=== PATIENT | male | born 1970 | race Caucasian/White ===

== ENCOUNTER 2017-06-15 20:48 | Inpatient (IN) | payer MEDICAID ==
[~2017-06-15] VITALS: Ht 185.4 cm; Wt 143.0 kg
[2017-06-15] MEDS ORDERED: SOD CHLORIDE 0.9% 1,000 ML IV STA (21:00)
--- NOTE | 2017-06-15 21:05 | ERD ---
ER Documentation Chief Complaint Chief Complaint passed out in bathroom HPI This 46-year-old male had one episode of near syncope and one episode of syncope today at his home. Both episodes occurred right after standing up and he began to feel lightheaded and let himself down slowly. He denies any trauma. He currently has no pain. He did not have any chest pain shortness of breath fever or chills recently. He does state that he has felt very stressed out. He has generalized weakness. He has no suicidal or homicidal ideas. States that he feels a lot of anxiety. ROS All systems reviewed and are negative except as per history of present illness. Allergies Allergies: Coded Allergies: No Known Allergy (Unverified , 06/15/17) PMhx/Soc Medical and Surgical Hx: pt denies Medical Hx History of Surgery: Yes (abd surgery) Anesthesia Reaction: No Hx Neurological Disorder: No Hx Respiratory Disorders: No Hx Cardiac Disorders: No Hx Psychiatric Problems: No Hx Miscellaneous Medical Probl: No Hx Alcohol Use: No (prior) Hx Substance Use: No (prior, meth) Hx Tobacco Use: Yes Smoking Status: Current every day smoker Physical Exam Vitals Vital Signs Date Time Temp Pulse Resp B/P Pulse Ox O2 Delivery O2 Flow Rate FiO2 06/16/17 01:42 98.6 98 17 118/73 98 Nasal Cannula 6.0 06/15/17 20:53 99.6 113 20 139/71 94 Physical Exam Const: [] Mild distress, well-nourished, obese male Head: Atraumatic Eyes: Normal Conjunctiva EOMI, PERRLA ENT: Normal External Ears, Nose and Mouth. Neck: Full range of motion..~ No meningismus. Resp: Clear to auscultation bilaterally Cardio: Regular tachycardia, no murmurs Abd: Soft, non tender, non distended. Normal bowel sounds Skin: No petechiae or rashes Back: No midline or flank tenderness Ext: No cyanosis, or edema, distal pulses intact all 4 extreme Neur: Awake and alert oriented 3, cranial nerves II through XII intact, no cerebellar deficits, 5 out of 5 strength all extremities peer Psych: Appears mildly anxious but is very cooperative and pleasant. Result Diagram: 06/15/17211706/15/172117 Results 24 hrs Laboratory Tests Test 06/15/17 21:18 06/15/17 21:31 06/16/17 00:02 White Blood Count 13.310^3/ul Red Blood Count 5.2210^6/ul Hemoglobin 15.5g/dl Hematocrit 46.3% Mean Corpuscular Volume 88.7fl Mean Corpuscular Hemoglobin 29.7pg Mean Corpuscular Hemoglobin Concent 33.5g/dl Red Cell Distribution Width 13.0% Platelet Count 61677^3/UL Mean Platelet Volume 9.5fl Neutrophils % 87.8% Lymphocytes % 7.1% Monocytes % 3.9% Eosinophils % 0.1% Basophils % 0.4% Nucleated Red Blood Cells % 0.0/100WBC Neutrophils # 11.710^3/ul Lymphocytes # 1.010^3/ul Monocytes # 0.510^3/ul Eosinophils # 0.010^3/ul Basophils # 0.110^3/ul Nucleated Red Blood Cells # 0.010^3/ul Sodium Level 140mmol/L Potassium Level 4.5mmol/L Chloride Level 100mmol/L Carbon Dioxide Level 29mmol/L Anion Gap 16 Blood Urea Nitrogen 18mg/dl Creatinine 1.10mg/dl Glucose Level 193mg/dl Calcium Level 10.0mg/dl Troponin I 0.024ng/ml Urine Color MALIK Urine Clarity CLOUDY Urine pH 5.0 Urine Specific [place] 1.028 Urine Ketones TRACEmg/dL Urine Nitrite NEGATIVEmg/dL Urine Bilirubin NEGATIVEmg/dL Urine Urobilinogen 1+mg/dL Urine Leukocyte Esterase NEGATIVELeu/ul Urine Microscopic RBC 3/HPF Urine Microscopic WBC 4/HPF Urine Calcium Oxalate Crystals MANY/HPF Urine Hyaline Casts FEW/HPF Urine Mucus MODERATE/HPF Urine Hemoglobin NEGATIVEmg/dL Urine Glucose 1+mg/dL Urine Total Protein 2+mg/dl Lactic Acid Level 2.1mmol/L Current Medications Medications (Trade) Dose Ordered Sig/Rose Route PRN Reason Start Time Stop Time Status Last Admin Dose Admin Sodium Chloride (NS) 1,000 ml @ 1,000 mls/hr Q1H STAT IV 06/15/17 21:00 06/15/17 21:59 DC 06/15/17 21:39 Lorazepam (Ativan) 1 mg ONCE ONCE IV 06/15/17 21:30 06/15/17 21:31 DC 06/15/17 21:32 Procedures/MDM Multiple episodes of syncope today and 46-year-old male. Etiology is not certain. As first 2 episodes occurred after standing it seemed most likely a vasovagal event. This happened again in the emergency medicine bathroom patient was found unconscious on the ground. He did not remember anything except for making it to the bathroom until people were helping him up. He has no history of seizures. Head CT was performed and shows no acute intracranial process. Had already been hydrated with a liter of normal saline. Also been given Ativan 1 mg IV for anxiety. EKG with no signs of ischemia. Leukocytosis with no signs of urinary tract infection or pneumonia. Patient has no history of seizure disorder. As of mild dehydration with very mild elevation of lactic acid. He will be admitted for further monitoring and workup. Dr. Bailey is admitting. environmental monitoring technician interpretation: Initial sinus tachycardia followed eventually by normal sinus rhythm. EKG interpretation: Sinus tachycardia rate of 110, borderline axis, no ST or T- wave changes concerning for acute ischemia, normal intervals. Chest x-ray interpretation: See no acute process, no infiltrates, no pulmonary edema, no fractures, no pneumothorax. CT head interpretation: I see no acute process. I see no hemorrhage, no mass- effect or midline shift, no skull fracture. Departure Diagnosis: Primary Impression: Syncope Additional Impressions: Fall Dehydration Lactic acidosis Condition: Stable AWAIS ROGERS DO Jun 15, 2017 21:05
[2017-06-15] MEDS ORDERED: LORAZEPAM 2 MG INJ IV ONE (21:30)
--- NOTE | 2017-06-15 22:33 | RADRPT ---
PROCEDURE: XR Chest. CLINICAL INDICATION: Cough. TECHNIQUE: Portable AP semi erect views of the chest were obtained, 2 images sent to the PACS for review. COMPARISON: None. FINDINGS: The cardiomediastinal silhouette is within normal limits. The lungs are clear. There is no evidenc e for pleural effusion, pneumothorax or pulmonary vascular congestion. The osseous structures are i ntact with no evidence for acute abnormality. RPTAT:HJJR IMPRESSION: No evidence for acute intrathoracic pathology. Physician Luci Date Time Electronically viewed and signed by Physician Luci on 06/15/2017 22:33 /
[2017-06-16] VITALS (18 sets, daily range): BP systolic 96–137; BP diastolic 53–80; PULSE 74–83; RESP 14–18; TEMP 98.6; Ht 185.4 cm; Wt 143.0 kg
[2017-06-16] MEDS ORDERED: ETOMIDATE 20 MG INJ ONE
[2017-06-16] MEDS ORDERED: SUCCINYLCHOLINE CHLORIDE 100 MG/5 ML SYG IV ONE
--- NOTE | 2017-06-16 00:24 | RADRPT ---
PROCEDURE: CT Brain without contrast. CLINICAL INDICATION: New onset seizure TECHNIQUE: A CT of the brain was performed utilizing axial imaging from the skull base through the vertex without IV contrast. Multiplanar reformatted images were made. Images were reviewed on a [employer] workstation. The CTDIvol is 41.12 mGy and the DLP is 810.25 mGycm. One or more the following dose reduction techniques were utilized: Automated exposure control, adjus tment of the mA and / or kV according to patient's size, or use of iterative reconstruction techniqu e. COMPARISON: None FINDINGS: There is no intracranial hemorrhage, mass effect, or midline shift. No extra-axial fluid collection is seen. The ventricles and sulci are normal in size and configuration. The density of the brain is normal, and the lagos white matter differentiation appears well-preserved. The visualized paranasal sinuses and osseous structures are grossly unremarkable. IMPRESSION: 1. No evidence of acute intracranial pathology. 2. The brain is normal in appearance. RPTAT: HJES .Mason Waldrop MD, MD Date Time Electronically viewed and signed by .Mason Waldrop MD, on 06/16/2017 00:24 .S/
[2017-06-16] MEDS ORDERED: ONDANSETRON 4 MG INJ IV PRN ×2 (03:30→06:00)
[2017-06-16] MEDS ORDERED: ACETAMINOPHEN 325 MG TAB PO PRN (03:30)
[2017-06-16] MEDS ORDERED: PROPOFOL 100 ML ONE (05:48)
[2017-06-16] MEDS: PANTOPRAZOLE 40 MG INJ IV SCH (06:00)
[2017-06-16] MEDS ORDERED: ENOXAPARIN 100 MG/ML SYG SC SCH (06:00)
[2017-06-16] MEDS ORDERED: PROPOFOL 100 ML IV ONE (06:00)
[2017-06-16] MEDS ORDERED: LORAZEPAM 2 MG INJ IV PRN ×2 (06:00→11:30)
[2017-06-16] MEDS ORDERED: DEXTROSE 5%-0.45% NACL 1,000 ML IV SCH (06:00)
[2017-06-16] MEDS ORDERED: ENOXAPARIN 60 MG/0.6 ML SYG SC ONE (06:00)
[2017-06-16] MEDS ORDERED: DILTIAZEM-D5W 125MG/125ML DRIP 125 ML IV SCH (06:00)
[2017-06-16] MEDS ORDERED: ACETAMINOPHEN 650 MG SUPP PR PRN (06:00)
[2017-06-16] MEDS ORDERED: DILTIAZEM 25 MG INJ IV ONE (06:00)
[2017-06-16] MEDS ORDERED: ALBUTEROL HFA 8 GM INHALER INH PRN (06:00)
[2017-06-16] MEDS ORDERED: AMIODARONE 900 MG in DEXTROSE 5% 482 ML IV SCH (06:00)
[2017-06-16] MEDS ORDERED: IPRATROPIUM (HFA) 12.9 GM INHALER INH PRN (06:00)
[2017-06-16] MEDS ORDERED: LORAZEPAM 2 MG INJ IV ONE (06:00)
[2017-06-16] MEDS ORDERED: morphine 2 MG INJ IV PRN (06:00)
[2017-06-16] MEDS ORDERED: HALOPERIDOL 5 MG INJ ONE (06:04)
[2017-06-16] MEDS ORDERED: DIPHENHYDRAMINE 50 MG INJ ONE (06:04)
[2017-06-16] MEDS ORDERED: DIAZEPAM 5 MG/ML SYG IV ONE (07:00)
[2017-06-16] MEDS ORDERED: SOD CHLORIDE 0.9% 1,000 ML IV ONE (07:00)
[2017-06-16] MEDS ORDERED: LEVETIRACETAM 1000 MG (PMX) 100 ML IVPB ONE (07:00)
[2017-06-16] MEDS ORDERED: METOPROLOL 5 MG INJ IV ONE (07:00)
--- NOTE | 2017-06-16 07:26 | HP ---
Date/Time of Note Date/Time of Note DATE: 06/16/17 TIME: 07:14 Assessment/Plan VTE Prophylaxis VTE Prophylaxis Intervention: heparin Assessment/Plan Assessment/Plan 1. Acute encephalopathy, status post intubation: Suspect possible seizure versus CVA -Head CT was no acute findings -Obtain MRI of the brain -EEG -Neurology consult -Continue vent support -Pulmonary consult -IV Keppra with as needed Ativan for seizure -Versed for sedation 2. A-fib with RVR -Amiodarone drip, aspirin -Trend troponin, check TSH -2D echo -Cardiology consult 3. Syncope, which occurred at home -A-fib vs seizure vs other -See above for management plan 4. Leukocytosis, likely reactive -Check a.m. lab -Infectious workup as needed 5. Obesity, with a BMI of almost 42 -Weight reduction will be advised once patient is extubated and able communicate HPI/ROS Admit Date/Time Admit Date/Time Hx of Present Illness This is a 46-year-old obese male with history of meth use in the past who presented to the ER for syncope. Patient initially complained of dizziness/ lightheadedness while he was at home. He then had a loss of consciousness. Unknown for how long he was down. He then called 911 and in route to the ER he was alert and oriented even though reportedly, EMS felt he initially appeared to be in the post ictal state. When I arrived to the ER, had a temp of 99.6 and heart rate was 113. During his ER stay, patient was noted to be in rapid A. fib with a rate of around 170. He was also noted to show a change in mentation and was also aggressive requiring restraining and eventual intubation. He was given IV diltiazem and IV metoprolol with improvement in his heart rate. Currently he is awaiting admission to ICU. U tox not done yet but his urinalysis shows many calcium oxalate crystals. WBC was 13,000 and initial lactic acid 2.1. Head CT and a chest x-ray was no acute findings. PMH/Family/Social Social History Smoking Status: Current every day smoker Exam/Review of Systems Vital Signs Vitals Vital Signs Date Time Temp Pulse Resp B/P Pulse Ox O2 Delivery O2 Flow Rate FiO2 06/16/17 04:09 98.7 99 16 111/79 98 Nasal Cannula 6.0 Exam Constitutional: other (Intubated, looks comfortable on event) Head: atraumatic, normocephalic Eyes: PERRL Respiratory: clear to auscultation, normal air movement Cardiovascular: irregular rhythm Gastrointestinal: soft Extremities: normal pulses Labs Result Diagram: 06/15/17211706/15/172117 Medications Medications Current Medications Diltiazem HCl 125 ml @ 5 mls/hr TITRATE IV ; Start 06/16/17 at 06:00 Dextrose/Sodium Chloride (D5-1/2ns) 1,000 ml @ 100 mls/hr Q10H IV ; Start at 06:00 Ondansetron HCl (Zofran Inj) 4 mg Q6H PRN IV NAUSEA AND/OR VOMITING; Start at 06:00 Acetaminophen (Tylenol Supp) 650 mg Q4H PRN NM PAIN LEVEL 1-3 OR FEVER; Start 06/16/17 at 06:00 Morphine Sulfate (morphine) 2 mg Q4H PRN IV PAIN LEVEL 7-10; Start 06/16/17 at 06:00 Lorazepam (Ativan) 1 mg Q2H PRN IV ANXIETY; Start 06/16/17 at 06:00 Pantoprazole (Protonix Iv) 40 mg DAILY@06 IV ; Start 06/16/17 at 06:00 Enoxaparin Sodium (Lovenox) 100 mg Q24H SC ; Start 06/16/17 at 06:00 Aspirin 81 mg 81 mg DAILY PO ; Start 06/16/17 at 09:00 Amiodarone HCl/ Dextrose (Cordarone Iv/ D5W) 500 ml @ 0 mls/hr Q0M IV ; Start 06/16/17 at 06:00 Metoprolol Tartrate 12.5 mg 12.5 mg Q12 NGT ; Start 06/16/17 at 09:00 Sodium Chloride (NS) 1,000 ml @ 1,000 mls/hr Q1H ONCE IV ; Start 06/16/17 at 07:00; Stop 06/16/17 at 07:59 KEVIN CASTANO MD Jun 16, 2017 07:25
[2017-06-16] MEDS: PROPOFOL 100 ML IV SCH ×5 (08:15→21:32)
[2017-06-16] MEDS: ASPIRIN (EC) 81 MG TAB PO SCH (09:00)
[2017-06-16] MEDS ORDERED: METOPROLOL 25 MG TAB NGT SCH (09:00)
[2017-06-16] MEDS ORDERED: HEPARIN 25000 UNITS/250 ML 250 ML IV SCH (09:30)
[2017-06-16] MEDS ORDERED: HEPARIN 1000 UNITS/ML 10 ML INJ IV ONE (09:30)
[2017-06-16] MEDS ORDERED: HEPARIN 1000 UNITS/ML 10 ML INJ IV PRN (09:30)
[2017-06-16] MEDS ORDERED: DEXTROSE 50% 50 ML SYRINGE IV PRN ×2 (10:00)
[2017-06-16] MEDS ORDERED: GLUCOSE GEL 15 GRAM TUBE BUCCAL PRN (10:00)
[2017-06-16] MEDS ORDERED: GLUCAGON 1 MG INJ IM PRN (10:00)
[2017-06-16] MEDS ORDERED: GLUCOSE GEL 15 GRAM TUBE PO PRN ×2 (10:00)
--- NOTE | 2017-06-16 11:24 | PN ---
Date/Time of Note Date/Time of Note DATE: 06/16/17 TIME: 11:23 Assessment/Plan VTE Prophylaxis VTE Prophylaxis Intervention: heparin Assessment/Plan Chief Complaint/Hosp Course Patient is a 46-year-old obese male with a past medical history of meth use who presents to the ED for syncope, patient developed altered mental status while in the ED and had to be intubated. Questionable postictal state during pickup by paramedics Assessment and plan Acute encephalopathy, drug-induced, questionable spice, seizure, questionable CVA Atrial fibrillation with RVR, unknown if first event Syncope, questionable, secondary to A. fib versus seizure versus drug-induced Leukocytosis Obesity History of drug abuse Acute kidney injury, Elevated lactic acid Calcium oxalate and urine -Unknown cause of patient's encephalopathy, neurology has been consulted, EEG, MRI ordered, patient started on Keppra IV and intubated for airway protection -Patient's acute kidney injury may be secondary to volume depletion, patient was not producing very much urine upon initial evaluation, however patient's urine is increasing now, CT abdomen and pelvis to rule out obstructive nephrolithiasis given calcium oxalate crystals in urine, follow-up, increase volume resuscitation with IV fluids -A. fib with RVR, now sinus rhythm, will continue heparin drip for now given patient's unknown status of atrial fibrillation, cardiology has been consulted, recommendations appreciated -Pulmonology has been consulted for airway management, extubate when able -Follow-up in the a.m. Problems: Subjective 24 Hr Interval Summary Free Text/Dictation patient developed agitation and had to be intubated, still agitated on the vent and sedated Exam/Review of Systems Vital Signs Vitals Vital Signs Date Time Temp Pulse Resp B/P Pulse Ox O2 Delivery O2 Flow Rate FiO2 06/16/17 11:04 79 18 121/72 Mechanical Ventilator 06/16/17 10:08 98.0 98 06/16/17 05:45 100 06/16/17 04:09 6.0 Exam Physical exam General: Patient is laying in bed, intubated, sedated Mentation: Patient is sedated, but agitated Head: Normocephalic atraumatic Eyes: EOMI, pupils reactive to light, sluggish Neck: Supple, nontender, midline Respiratory: coarse to auscultation bilaterally Cardiovascular: tachycardic, no obvious murmurs Gastrointestinal: non-tender to palpation, bowel sounds heard. Neurological: Moves all extremities spontaneously, but sedated Skin: No new skin lesions Results Result Diagram: 06/16/17 0737 06/16/17 0737 Results 24 hrs Laboratory Tests Test 06/15/17 21:18 06/15/17 21:31 06/16/17 00:02 06/16/17 07:00 White Blood Count 13.3 H Red Blood Count 5.22 Hemoglobin 15.5 Hematocrit 46.3 Mean Corpuscular Volume 88.7 Mean Corpuscular Hemoglobin 29.7 Mean Corpuscular Hemoglobin Concent 33.5 Red Cell Distribution Width 13.0 Platelet Count 301 Mean Platelet Volume 9.5 Neutrophils % 87.8 H Lymphocytes % 7.1 L Monocytes % 3.9 Eosinophils % 0.1 Basophils % 0.4 Nucleated Red Blood Cells % 0.0 Neutrophils # 11.7 H Lymphocytes # 1.0 Monocytes # 0.5 Eosinophils # 0.0 Basophils # 0.1 Nucleated Red Blood Cells # 0.0 Sodium Level 140 Potassium Level 4.5 Chloride Level 100 Carbon Dioxide Level 29 Anion Gap 16 Blood Urea Nitrogen 18 Creatinine 1.10 Glucose Level 193 Calcium Level 10.0 Troponin I 0.024 Thyroid Stimulating Hormone (TSH) 1.040 Urine Color MALIK Urine Clarity CLOUDY A Urine pH 5.0 Urine Specific [place] 1.028 Urine Ketones TRACE A Urine Nitrite NEGATIVE Urine Bilirubin NEGATIVE Urine Urobilinogen 1+ H Urine Leukocyte Esterase NEGATIVE Urine Microscopic RBC 3 Urine Microscopic WBC 4 Urine Calcium Oxalate Crystals MANY A Urine Hyaline Casts FEW A Urine Mucus MODERATE Urine Hemoglobin NEGATIVE Urine Glucose 1+ H Urine Total Protein 2+ H Lactic Acid Level 2.1 H Urine Opiates Screen Negative Urine Barbiturates Negative Urine Amphetamines Screen Negative Urine Benzodiazepines Screen Negative Urine Cocaine Screen Negative Urine Cannabinoids Negative Test 06/16/17 07:37 White Blood Count 12.9 H Red Blood Count 4.36 L Hemoglobin 13.2 L Hematocrit 39.5 L Mean Corpuscular Volume 90.6 Mean Corpuscular Hemoglobin 30.3 Mean Corpuscular Hemoglobin Concent 33.4 Red Cell Distribution Width 13.2 Platelet Count 258 Mean Platelet Volume 9.4 Neutrophils % 82.0 H Lymphocytes % 9.0 L Monocytes % 7.7 Eosinophils % 0.2 Basophils % 0.4 Nucleated Red Blood Cells % 0.0 Neutrophils # 10.6 H Lymphocytes # 1.2 Monocytes # 1.0 H Eosinophils # 0.0 Basophils # 0.1 Nucleated Red Blood Cells # 0.0 Prothrombin Time 13.5 Prothrombin Time Ratio 1.1 INR International Normalized Ratio 1.03 Activated Partial Thromboplast Time 28.0 Sodium Level 143 Potassium Level 4.5 Chloride Level 109 Carbon Dioxide Level 27 Anion Gap 12 Blood Urea Nitrogen 19 Creatinine 1.29 H Glucose Level 118 # Hemoglobin A1c 6.9 H Calcium Level 8.4 Magnesium Level 1.9 Total Bilirubin 0.2 Direct Bilirubin 0.00 Indirect Bilirubin 0.2 Aspartate Amino Transf (AST/SGOT) 30 Alanine Aminotransferase (ALT/SGPT) 41 Alkaline Phosphatase 53 Troponin I 0.084 Total Protein 5.5 L Albumin 2.8 L Globulin 2.70 Albumin/Globulin Ratio 1.03 Triglycerides Level 129 Cholesterol Level 108 LDL Cholesterol, Calculated 62 HDL Cholesterol 20 L Cholesterol/HDL Ratio 5.4 Thyroid Stimulating Hormone (TSH) 1.390 Medications Medications Current Medications Diltiazem HCl 125 ml @ 5 mls/hr TITRATE IV ; Start 06/16/17 at 06:00 Dextrose/Sodium Chloride (D5-1/2ns) 1,000 ml @ 100 mls/hr Q10H IV Last administered on 06/16/17 06:00; Admin Dose 100 MLS/HR; Start 06/16/17 at 06: 00 Ondansetron HCl (Zofran Inj) 4 mg Q6H PRN IV NAUSEA AND/OR VOMITING; Start at 06:00 Acetaminophen (Tylenol Supp) 650 mg Q4H PRN NE PAIN LEVEL 1-3 OR FEVER; Start 06/16/17 at 06:00 Morphine Sulfate (morphine) 2 mg Q4H PRN IV PAIN LEVEL 7-10; Start 06/16/17 at 06:00 Lorazepam (Ativan) 1 mg Q2H PRN IV ANXIETY; Start 06/16/17 at 06:00 Pantoprazole (Protonix Iv) 40 mg DAILY@06 IV Last administered on 06/16/17 06 :00; Admin Dose 40 MG; Start 06/16/17 at 06:00 Aspirin 81 mg 81 mg DAILY PO ; Start 06/16/17 at 09:00 Amiodarone HCl/ Dextrose (Cordarone Iv/ D5W) 500 ml @ 0 mls/hr Q0M IV ; Start 06/16/17 at 06:00 Metoprolol Tartrate (Lopressor) 12.5 mg Q12 NGT ; Start 06/16/17 at 09:00 Diagnostic Test (Pha) (Accu-Chek) 1 ea 02 XX ; Start 06/17/17 at 02:00 Insulin Aspart (Novolog Insulin Pen) NOVOLOG *MODERATE* ALGORITHM Q6 SC ; Start 06/16/17 at 12:00 Miscellaneous Information 1 ea NOTE XX ; Start 06/16/17 at 10:00 Glucose (Glutose) 15 gm Q15M PRN PO DECREASED GLUCOSE; Start 06/16/17 at 10:00 Glucose (Glutose) 22.5 gm Q15M PRN PO DECREASED GLUCOSE; Start 06/16/17 at 10: 00 Dextrose (D50w Syringe) 25 ml Q15M PRN IV DECREASED GLUCOSE; Start 06/16/17 at 10:00 Dextrose (D50w Syringe) 50 ml Q15M PRN IV DECREASED GLUCOSE; Start 06/16/17 at 10:00 Glucagon (Glucagen) 1 mg Q15M PRN IM DECREASED GLUCOSE; Start 06/16/17 at 10: 00 Glucose (Glutose) 15 gm Q15M PRN BUCCAL DECREASED GLUCOSE; Start 06/16/17 at 10:00 LIVE SHEN Jun 16, 2017 11:24
--- NOTE | 2017-06-16 11:39 | RADRPT ---
PROCEDURE: US carotid arteries. CLINICAL INDICATION: Dizziness. Syncope. TECHNIQUE: Multiple sonographic images of the carotid arteries and vertebral arteries were obtaine d utilizing lagos scale, duplex, and color-flow imaging. The images were reviewed on a PACS workstati on. COMPARISON: No prior studies are available for comparison. FINDINGS: Evaluation of the right carotid bifurcation region reveals no atherosclerotic disease. There is antegrade flow within the right vertebral artery. The left side of neck could not be evaluated due to overlying dressing. RIGHT CAROTID MEASUREMENTS: Common Carotid [id number] (cm/sec) Internal Carotid Artery 56 (cm/sec) External Carotid Artery , 108 (cm/sec) Vertebral Artery 51 (cm/sec) Internal Carotid/Common Carotid0.8 LEFT CAROTID MEASUREMENTS: Unable to assess due to overlying dressing. Validated velocity measurements with angiographic measurements. Velocity criteria are extrapolated f rom diameter data as defined by the Society of Radiologists in Ultrasound Consensus Conference. Radi ology 2003; 229;340-346. This study does indirectly reference the measurement of the distal ICA elizabeth meter as the denominator for stenosis measurement. IMPRESSION: 1. Normal right carotid arteries. 2. Normal antegrade flow in the right vertebral artery. 3. The left side of neck could not be evaluated due to overlying dressing. RPTAT: QQ SRU Consensus Conference Criteria for the Diagnosis of Carotid Artery Stenosis* Degree of Stenosis, % ICA PSV, cm/sec Plaque Estimate, % ICA/CCA PSV Ratio Normal <125 None <2.0 <50 <125 <50 <2.0 50 69 125-230 >50 2.0-4.0 >70 but less than near occlusion >230 >50 <4.0 Near occlusion High, low, or undetectable Visible Variable Total occlusion Undetectable Visible, no detectable lumen Not applicable *Cartoid artery stenosis: lagos-scale and Doppler US diagnosis. Society of Radiologists in Ultrasound Consensus Conference. Radiology 2003; 229: 340-346 .Jimi Cabrera MD, Date Time Electronically viewed and signed by .Jimi Cabrera MD, on 06/16/2017 11:39 .R/
[2017-06-16] MEDS: SOD CHLORIDE 0.9% 1,000 ML IV SCH ×2 (11:52→17:42)
[2017-06-16] MEDS: INSULIN ASPART [NOVOLOG] 3 ML PEN SC SCH ×2 (12:00→17:42)
--- NOTE | 2017-06-16 15:39 | CONS ---
DATE OF ADMISSION: 06/16/2017 DATE OF CONSULTATION: TYPE OF CONSULTATION: Pulmonary. REASON FOR CONSULTATION: Respiratory failure, mechanical ventilation. HISTORY OF PRESENT ILLNESS: This is a 46-year-old gentleman with multiple medical problems, came in , apparently having taken methamphetamines, possibly in the emergency room bathroom. Became minimal ly unresponsive, required emergent intubation and mechanical ventilation. Also noted to be in atria l fibrillation with rapid ventricular rate requiring IV metoprolol and then Cardizem drip. Initial lactic acidosis and leukocytosis were noted. CT of the brain and chest x-ray was essentially unrema rkable. PAST MEDICAL HISTORY: As above. MEDICATIONS: Per chart. ALLERGIES: NONE. SOCIAL HISTORY: Nonsmoker. Alcohol, tobacco history unknown. PHYSICAL EXAMINATION GENERAL: An obese gentleman, orally intubated on mechanical ventilation, appears comfortable at res t. VITAL SIGNS: Currently afebrile, pulse is 80, blood pressure 121/80, O2 saturation 96% on FIO2 of 1 00%. NECK: Supple. No JVD or lymphadenopathy. CARDIAC: S1, S2, no added sounds or murmurs. CHEST: Diminished air entry bilaterally. ABDOMEN: Soft, nontender. No guarding or rebound. EXTREMITIES: No cyanosis, clubbing. NEUROLOGIC: Unable to assess. LABORATORIES: White count 12.9, hemoglobin 13.2, platelets of 258. BUN 19, creatinine 1.29. INR w as 1.03. Initial U-tox is unremarkable. Urinalysis was negative. DIAGNOSTIC STUDIES: Chest x-ray showed no acute intrathoracic abnormality. CT of the brain was wit hin normal limits. IMPRESSION AND PLAN: 1. Concern for substance abuse. 2. Atrial fibrillation with rapid ventricular rate. 3. Hypoxemic respiratory failure. 4. Significant encephalopathy, toxic metabolic. PLAN: 1. Continue mechanical ventilation. 2. Vent support. 3. Rate control and cardiac recommendations. 4. DVT and GI prophylaxis. Dictated By: BETH ALFARO/LIYAH Conf#: [id number] DID#: [id number]
--- NOTE | 2017-06-16 15:56 | CONS ---
Date/Time of Note Date/Time of Note DATE: 06/16/17 TIME: 15:50 Assessment/Plan Assessment/Plan Chief Complaint/Hosp Course Altered mental status and possible seizures Problems: Additional Assessment/Plan Patient is a 46-year-old male with history of methamphetamine use in the past was brought into emergency room for possible syncope. He initially complained of dizziness and lightheadedness while he was home. Subsequently he lost consciousness. The duration of his loss of consciousness is not known. He himself called paramedics and was awake and alert en route to emergency room. As per paramedics he had appeared to be postictal. In the emergency room his initial evaluation shows him to be in rapid atrial fibrillation with a rate of around 170 and he was confused. He became agitated requiring restraining and eventually intubated. A CT scan of the brain was unremarkable. He is currently in ICU. Examination was quite limited. He is intubated, ventilated and sedated. He may have had a seizure but would like to rule out other causes. Plan 1 MRI of the brain 2 EEG 3 avoid sedation if possible 4 seizure precautions 5 neuro checks per ICU protocol 6 will follow Consultation Date/Type/Reason Admit Date/Time Date of Consultation: Jun 16, 2017 Type of Consultation: Neurology Reason for Consultation Altered mental status possibly seizure Hx of Present Illness Patient is a 46-year-old male with history of methamphetamine use in the past was brought into emergency room for possible syncope. He initially complained of dizziness and lightheadedness while he was home. Subsequently he lost consciousness. The duration of his loss of consciousness is not known. He himself called paramedics and was awake and alert en route to emergency room. As per paramedics he had appeared to be postictal. In the emergency room his initial evaluation shows him to be in rapid atrial fibrillation with a rate of around 170 and he was confused. He became agitated requiring restraining and eventually intubated. A CT scan of the brain was unremarkable. He is currently in ICU. Social History Smoking Status: Current every day smoker Exam/Review of Systems Vital Signs Vitals Vital Signs Date Time Temp Pulse Resp B/P Pulse Ox O2 Delivery O2 Flow Rate FiO2 06/16/17 15:05 85 18 100 100 06/16/17 14:35 141/78 Mechanical Ventilator 06/16/17 13:00 98.6 06/16/17 04:09 6.0 Exam Constitutional: other (Intubated, mechanically ventilated, sedated) Head: normocephalic Eyes: nl conjunctiva ENMT: nl external ears & nose Neck: non-tender, supple Cardiovascular: nl pulses, regular rate and rhythm Gastrointestinal: nl liver, spleen, soft Neurological: other (Intubated, mechanically ventilated, sedated, positive corneals and gag reflexes, no withdrawal to noxious stimulus, limited exam) Results Result Diagram: 06/16/17 0737 06/16/17 0737 Results 24 hrs Laboratory Tests Test 06/15/17 21:18 06/15/17 21:31 06/16/17 00:02 06/16/17 07:00 White Blood Count 13.3 H Red Blood Count 5.22 Hemoglobin 15.5 Hematocrit 46.3 Mean Corpuscular Volume 88.7 Mean Corpuscular Hemoglobin 29.7 Mean Corpuscular Hemoglobin Concent 33.5 Red Cell Distribution Width 13.0 Platelet Count 301 Mean Platelet Volume 9.5 Neutrophils % 87.8 H Lymphocytes % 7.1 L Monocytes % 3.9 Eosinophils % 0.1 Basophils % 0.4 Nucleated Red Blood Cells % 0.0 Neutrophils # 11.7 H Lymphocytes # 1.0 Monocytes # 0.5 Eosinophils # 0.0 Basophils # 0.1 Nucleated Red Blood Cells # 0.0 Sodium Level 140 Potassium Level 4.5 Chloride Level 100 Carbon Dioxide Level 29 Anion Gap 16 Blood Urea Nitrogen 18 Creatinine 1.10 Glucose Level 193 Calcium Level 10.0 Troponin I 0.024 Thyroid Stimulating Hormone (TSH) 1.040 Urine Color MALIK Urine Clarity CLOUDY A Urine pH 5.0 Urine Specific [place] 1.028 Urine Ketones TRACE A Urine Nitrite NEGATIVE Urine Bilirubin NEGATIVE Urine Urobilinogen 1+ H Urine Leukocyte Esterase NEGATIVE Urine Microscopic RBC 3 Urine Microscopic WBC 4 Urine Calcium Oxalate Crystals MANY A Urine Hyaline Casts FEW A Urine Mucus MODERATE Urine Hemoglobin NEGATIVE Urine Glucose 1+ H Urine Total Protein 2+ H Lactic Acid Level 2.1 H Urine Opiates Screen Negative Urine Barbiturates Negative Urine Amphetamines Screen Negative Urine Benzodiazepines Screen Negative Urine Cocaine Screen Negative Urine Cannabinoids Negative Test 06/16/17 07:37 06/16/17 11:57 06/16/17 12:27 06/16/17 14:17 White Blood Count 12.9 H Red Blood Count 4.36 L Hemoglobin 13.2 L Hematocrit 39.5 L Mean Corpuscular Volume 90.6 Mean Corpuscular Hemoglobin 30.3 Mean Corpuscular Hemoglobin Concent 33.4 Red Cell Distribution Width 13.2 Platelet Count 258 Mean Platelet Volume 9.4 Neutrophils % 82.0 H Lymphocytes % 9.0 L Monocytes % 7.7 Eosinophils % 0.2 Basophils % 0.4 Nucleated Red Blood Cells % 0.0 Neutrophils # 10.6 H Lymphocytes # 1.2 Monocytes # 1.0 H Eosinophils # 0.0 Basophils # 0.1 Nucleated Red Blood Cells # 0.0 Prothrombin Time 13.5 Prothrombin Time Ratio 1.1 INR International Normalized Ratio 1.03 Activated Partial Thromboplast Time 28.0 Sodium Level 143 Potassium Level 4.5 Chloride Level 109 Carbon Dioxide Level 27 Anion Gap 12 Blood Urea Nitrogen 19 Creatinine 1.29 H Glucose Level 118 # Hemoglobin A1c 6.9 H Calcium Level 8.4 Magnesium Level 1.9 Total Bilirubin 0.2 Direct Bilirubin 0.00 Indirect Bilirubin 0.2 Aspartate Amino Transf (AST/SGOT) 30 Alanine Aminotransferase (ALT/SGPT) 41 Alkaline Phosphatase 53 Troponin I 0.084 0.064 Total Protein 5.5 L Albumin 2.8 L Globulin 2.70 Albumin/Globulin Ratio 1.03 Triglycerides Level 129 Cholesterol Level 108 LDL Cholesterol, Calculated 62 HDL Cholesterol 20 L Cholesterol/HDL Ratio 5.4 Thyroid Stimulating Hormone (TSH) 1.390 Lactic Acid Level 1.4 Ammonia < 9 L Creatine Kinase 1295 H Creatine Kinase Index 0.7 Creatinine Kinase MB (Mass) 9.00 H Bedside Glucose 112 Blood Gas Specimen Source Blood arterial Arterial Blood Date Drawn 06/16/2017 2:20:59 PM Arterial Blood pH (Temp corrected) 7.361 Arterial Blood pCO2 (Temp correct) 45.6 H Arterial Blood pO2 (Temp corrected) 178.9 H Arterial Blood HCO3 25.2 Arterial Blood Base Excess -0.6 Arterial Blood Oxygen Saturation 99.1 H Andrew Test N/A Arterial Blood Gas Puncture Site Right Brachial Arterial Blood Carboxyhemoglobin 0.1 Arterial Blood Methemoglobin 0.3 Blood Gas A-a O2 Differential 488.5 H Oxyhemoglobin Percent 98.7 Total Hemoglobin 15.5 Blood Gas Temperature 37.0 Blood Gas Respiration Rate 12.0 Blood Gas Actual Respiration Rate 19 Blood Gas Modality VENT - AC FiO2 100.0 Blood Gas Tidal Volume 600.0 Blood Gas Low PEEP Setting 0 Blood Gas Notified Whom [place] Blood Gas Notified Time 06/16/2017 2:25:04 PM Medications Medications Current Medications Diltiazem HCl (Cardizem-D5W 125 Mg/125 ml Drip) 125 ml @ 5 mls/hr TITRATE IV ; Start 06/16/17 at 06:00 Ondansetron HCl (Zofran Inj) 4 mg Q6H PRN IV NAUSEA AND/OR VOMITING; Start at 06:00 Acetaminophen (Tylenol Supp) 650 mg Q4H PRN [place] PAIN LEVEL 1-3 OR FEVER; Start 06/16/17 at 06:00 Morphine Sulfate (morphine) 2 mg Q4H PRN IV PAIN LEVEL 7-10; Start 06/16/17 at 06:00 Lorazepam (Ativan) 1 mg Q2H PRN IV ANXIETY; Start 06/16/17 at 06:00 Pantoprazole (Protonix Iv) 40 mg DAILY@06 IV Last administered on 06/16/17t 06 :00; Admin Dose 40 MG; Start 06/16/17 at 06:00 Aspirin 81 mg 81 mg DAILY PO ; Start 06/16/17 at 09:00 Amiodarone HCl/ Dextrose (Cordarone Iv/ D5W) 500 ml @ 0 mls/hr Q0M IV ; Start 06/16/17 at 06:00 Metoprolol Tartrate (Lopressor) 12.5 mg Q12 NGT ; Start 06/16/17 at 09:00 Diagnostic Test (Pha) (Accu-Chek) 1 ea 02 XX ; Start 06/17/17 at 02:00 Insulin Aspart (Novolog Insulin Pen) NOVOLOG *MODERATE* ALGORITHM Q6 SC ; Start 06/16/17 at 12:00 Miscellaneous Information 1 ea NOTE XX ; Start 06/16/17 at 10:00 Glucose (Glutose) 15 gm Q15M PRN PO DECREASED GLUCOSE; Start 06/16/17 at 10:00 Glucose (Glutose) 22.5 gm Q15M PRN PO DECREASED GLUCOSE; Start 06/16/17 at 10: 00 Dextrose (D50w Syringe) 25 ml Q15M PRN IV DECREASED GLUCOSE; Start 06/16/17 at 10:00 Dextrose (D50w Syringe) 50 ml Q15M PRN IV DECREASED GLUCOSE; Start 06/16/17 at 10:00 Glucagon (Glucagen) 1 mg Q15M PRN IM DECREASED GLUCOSE; Start 06/16/17 at 10: 00 Glucose 15 gm 15 gm Q15M PRN BUCCAL DECREASED GLUCOSE; Start 06/16/17 at 10:00 Sodium Chloride 1,000 ml @ 150 mls/hr Q6H40M IV Last administered on t 11:52; Admin Dose 150 MLS/HR; Start 06/16/17 at 11:30 Levetiracetam (Keppra 1,000mg/ 100ml (Pmx)) 100 ml @ 400 mls/hr Q12 IVPB ; Start 06/16/17 at 21:00 Lorazepam (Ativan) 2 mg Q10MIN PRN IV seizure; Start 06/16/17 at 11:30 SAIGE LARIOS MD Jun 16, 2017 15:56
--- NOTE | 2017-06-16 17:21 | RADRPT ---
PROCEDURE: XR Chest. CLINICAL INDICATION: Check endotracheal tube position. TECHNIQUE: Single frontal view. COMPARISON: 06/15/2017. FINDINGS: The endotracheal tube is in satisfactory position with the tip 2.5 cm above the sharyn. The nasogast annie tube tip is in the stomach. There is mild atelectasis at the lung bases and there is bilateral i nterstitial disease consistent with pulmonary edema. The lungs are otherwise clear. The heart size is normal. There is no pleural effusion. There is no pleural effusion. There is mild left basilar atelectasis. IMPRESSION: 1. Endotracheal tube in satisfactory position. 2. Nasogastric tube tip in the stomach. 3. Mild atelectasis at the lung bases. 4. Bilateral interstitial pulmonary edema. 5. Mild left basilar atelectasis. 6. Otherwise unremarkable chest radiograph. RPTAT: QQ .Jimi Cabrera MD, Date Time Electronically viewed and signed by .Jimi Cabrera MD, on 06/16/2017 17:21 .R/
--- NOTE | 2017-06-16 17:30 | CONS ---
Date/Time of Note Date/Time of Note DATE: 06/16/17 TIME: 17:20 Assessment/Plan Assessment/Plan Chief Complaint/Hosp Course Assessment: Syncope vs seizure Paroxysmal atrial fibrillation with rapid ventricular response - now back in sinus rhythm Acute metabolic encephalopathy Acute hypoxic respiratory failure - intubated and on mechanical ventilation Leukocytosis and lactic acidosis - rule out infection Calcium oxalate crystals in urine - ? ethylene glycol or other poisoning Incomplete data Recommendations -discontinue heparin drip -metoprolol 25mg BID -obtain transthoracic echocardiogram Problems: Consultation Date/Type/Reason Admit Date/Time Type of Consultation: Cardiology Reason for Consultation atrial fibrillation with rapid ventricular response Hx of Present Illness The patient is a 46 year-old male who presented to the emergency department complaining of lightheadedness and an episode of loss of consciousness while at home. While in the emergency department, he became more confused and agitated, requiring restraints and subsequent intubation. He also went into atrial fibrillation with rapid ventricular response. He received intravenous diltiazem with improvement in his heart rates and subsequent reversion to sinus rhythm. He has a reported history of methamphetamine abuse. Current urine toxicology is negative. Unable to obtain review of systems, patient is intubated. Past Medical History Unable to obtain Past Surgical History Unable to obtain Family History Significant Family History: other (unable to obtain) Social History Unable to obtain Exam/Review of Systems Vital Signs Vitals Vital Signs Date Time Temp Pulse Resp B/P Pulse Ox O2 Delivery O2 Flow Rate FiO2 06/16/17 16:41 100 06/16/17 16:15 78 14 111/53 98 06/16/17 15:15 97.4 Mechanical Ventilator 06/16/17 04:09 6.0 Exam Constitutional: obese, No alert, No distress Psych: No nl mood/affect, No no complaints Head: atraumatic, normocephalic Eyes: nl conjunctiva, nl lids ENMT: intubated Neck: supple, No jvd Respiratory: clear to auscultation, No wheezing Cardiovascular: regular rate and rhythm, No murmurs/extra sounds Gastrointestinal: non-tender, soft Musculoskeletal: nl extremities to inspection Extremities: No clubbing, No cyanosis, No edema Neurological: No nl mental status, No nl speech Skin: nl turgor Results Result Diagram: 06/16/17 0737 06/16/17 0737 Results 24 hrs Laboratory Tests Test 06/15/17 21:18 06/15/17 21:31 06/16/17 00:02 06/16/17 07:00 White Blood Count 13.3 H Red Blood Count 5.22 Hemoglobin 15.5 Hematocrit 46.3 Mean Corpuscular Volume 88.7 Mean Corpuscular Hemoglobin 29.7 Mean Corpuscular Hemoglobin Concent 33.5 Red Cell Distribution Width 13.0 Platelet Count 301 Mean Platelet Volume 9.5 Neutrophils % 87.8 H Lymphocytes % 7.1 L Monocytes % 3.9 Eosinophils % 0.1 Basophils % 0.4 Nucleated Red Blood Cells % 0.0 Neutrophils # 11.7 H Lymphocytes # 1.0 Monocytes # 0.5 Eosinophils # 0.0 Basophils # 0.1 Nucleated Red Blood Cells # 0.0 Sodium Level 140 Potassium Level 4.5 Chloride Level 100 Carbon Dioxide Level 29 Anion Gap 16 Blood Urea Nitrogen 18 Creatinine 1.10 Glucose Level 193 Calcium Level 10.0 Troponin I 0.024 Thyroid Stimulating Hormone (TSH) 1.040 Urine Color MALIK Urine Clarity CLOUDY A Urine pH 5.0 Urine Specific [place] 1.028 Urine Ketones TRACE A Urine Nitrite NEGATIVE Urine Bilirubin NEGATIVE Urine Urobilinogen 1+ H Urine Leukocyte Esterase NEGATIVE Urine Microscopic RBC 3 Urine Microscopic WBC 4 Urine Calcium Oxalate Crystals MANY A Urine Hyaline Casts FEW A Urine Mucus MODERATE Urine Hemoglobin NEGATIVE Urine Glucose 1+ H Urine Total Protein 2+ H Lactic Acid Level 2.1 H Urine Opiates Screen Negative Urine Barbiturates Negative Urine Amphetamines Screen Negative Urine Benzodiazepines Screen Negative Urine Cocaine Screen Negative Urine Cannabinoids Negative Test 06/16/17 07:37 06/16/17 11:57 06/16/17 12:27 06/16/17 14:17 White Blood Count 12.9 H Red Blood Count 4.36 L Hemoglobin 13.2 L Hematocrit 39.5 L Mean Corpuscular Volume 90.6 Mean Corpuscular Hemoglobin 30.3 Mean Corpuscular Hemoglobin Concent 33.4 Red Cell Distribution Width 13.2 Platelet Count 258 Mean Platelet Volume 9.4 Neutrophils % 82.0 H Lymphocytes % 9.0 L Monocytes % 7.7 Eosinophils % 0.2 Basophils % 0.4 Nucleated Red Blood Cells % 0.0 Neutrophils # 10.6 H Lymphocytes # 1.2 Monocytes # 1.0 H Eosinophils # 0.0 Basophils # 0.1 Nucleated Red Blood Cells # 0.0 Prothrombin Time 13.5 Prothrombin Time Ratio 1.1 INR International Normalized Ratio 1.03 Activated Partial Thromboplast Time 28.0 Sodium Level 143 Potassium Level 4.5 Chloride Level 109 Carbon Dioxide Level 27 Anion Gap 12 Blood Urea Nitrogen 19 Creatinine 1.29 H Glucose Level 118 # Hemoglobin A1c 6.9 H Calcium Level 8.4 Magnesium Level 1.9 Total Bilirubin 0.2 Direct Bilirubin 0.00 Indirect Bilirubin 0.2 Aspartate Amino Transf (AST/SGOT) 30 Alanine Aminotransferase (ALT/SGPT) 41 Alkaline Phosphatase 53 Troponin I 0.084 0.064 Total Protein 5.5 L Albumin 2.8 L Globulin 2.70 Albumin/Globulin Ratio 1.03 Triglycerides Level 129 Cholesterol Level 108 LDL Cholesterol, Calculated 62 HDL Cholesterol 20 L Cholesterol/HDL Ratio 5.4 Thyroid Stimulating Hormone (TSH) 1.390 Lactic Acid Level 1.4 Ammonia < 9 L Creatine Kinase 1295 H Creatine Kinase Index 0.7 Creatinine Kinase MB (Mass) 9.00 H Bedside Glucose 112 Blood Gas Specimen Source Blood arterial Arterial Blood Date Drawn 06/16/2017 2:20:59 PM Arterial Blood pH (Temp corrected) 7.361 Arterial Blood pCO2 (Temp correct) 45.6 H Arterial Blood pO2 (Temp corrected) 178.9 H Arterial Blood HCO3 25.2 Arterial Blood Base Excess -0.6 Arterial Blood Oxygen Saturation 99.1 H Andrew Test N/A Arterial Blood Gas Puncture Site Right Brachial Arterial Blood Carboxyhemoglobin 0.1 Arterial Blood Methemoglobin 0.3 Blood Gas A-a O2 Differential 488.5 H Oxyhemoglobin Percent 98.7 Total Hemoglobin 15.5 Blood Gas Temperature 37.0 Blood Gas Respiration Rate 12.0 Blood Gas Actual Respiration Rate 19 Blood Gas Modality VENT - AC FiO2 100.0 Blood Gas Tidal Volume 600.0 Blood Gas Low PEEP Setting 0 Blood Gas Notified Whom [place] Blood Gas Notified Time 06/16/2017 2:25:04 PM Test 06/16/17 17:18 Bedside Glucose 87 Medications Medications Current Medications Diltiazem HCl (Cardizem-D5W 125 Mg/125 ml Drip) 125 ml @ 5 mls/hr TITRATE IV ; Start 06/16/17 at 06:00 Ondansetron HCl (Zofran Inj) 4 mg Q6H PRN IV NAUSEA AND/OR VOMITING; Start at 06:00 Acetaminophen (Tylenol Supp) 650 mg Q4H PRN [place] PAIN LEVEL 1-3 OR FEVER; Start 06/16/17 at 06:00 Morphine Sulfate (morphine) 2 mg Q4H PRN IV PAIN LEVEL 7-10; Start 06/16/17 at 06:00 Lorazepam (Ativan) 1 mg Q2H PRN IV ANXIETY; Start 06/16/17 at 06:00 Pantoprazole (Protonix Iv) 40 mg DAILY@06 IV Last administered on 06/16/17 06 :00; Admin Dose 40 MG; Start 06/16/17 at 06:00 Aspirin 81 mg 81 mg DAILY PO ; Start 06/16/17 at 09:00 Amiodarone HCl/ Dextrose (Cordarone Iv/ D5W) 500 ml @ 0 mls/hr Q0M IV ; Start 06/16/17 at 06:00 Metoprolol Tartrate (Lopressor) 12.5 mg Q12 NGT ; Start 06/16/17 at 09:00 Diagnostic Test (Pha) (Accu-Chek) 1 ea 02 XX ; Start 06/17/17 at 02:00 Insulin Aspart (Novolog Insulin Pen) NOVOLOG *MODERATE* ALGORITHM Q6 SC ; Start 06/16/17 at 12:00 Miscellaneous Information 1 ea NOTE XX ; Start 06/16/17 at 10:00 Glucose (Glutose) 15 gm Q15M PRN PO DECREASED GLUCOSE; Start 06/16/17 at 10:00 Glucose (Glutose) 22.5 gm Q15M PRN PO DECREASED GLUCOSE; Start 06/16/17 at 10: 00 Dextrose (D50w Syringe) 25 ml Q15M PRN IV DECREASED GLUCOSE; Start 06/16/17 at 10:00 Dextrose (D50w Syringe) 50 ml Q15M PRN IV DECREASED GLUCOSE; Start 06/16/17 at 10:00 Glucagon (Glucagen) 1 mg Q15M PRN IM DECREASED GLUCOSE; Start 06/16/17 at 10: 00 Glucose 15 gm 15 gm Q15M PRN BUCCAL DECREASED GLUCOSE; Start 06/16/17 at 10:00 Sodium Chloride 1,000 ml @ 150 mls/hr Q6H40M IV Last administered on 11:52; Admin Dose 150 MLS/HR; Start 06/16/17 at 11:30 Levetiracetam (Keppra 1,000mg/ 100ml (Pmx)) 100 ml @ 400 mls/hr Q12 IVPB ; Start 06/16/17 at 21:00 Lorazepam (Ativan) 2 mg Q10MIN PRN IV seizure; Start 06/16/17 at 11:30 ELLEN AGUILERA MD Jun 16, 2017 17:30
--- NOTE | 2017-06-16 18:46 | RADRPT ---
PROCEDURE: CT Abdomen and Pelvis without contrast CLINICAL INDICATION: Nephrolithiasis TECHNIQUE: Transaxial images were obtained through the abdomen and pelvis on a multi-slice scanner without the intravenous contrast administration. No oral contrast had previously been given. Sagit pablo and coronal re-formations were subsequently reconstructed. One or more of the following dose reduction techniques were used: - Automated exposure control. - Adjustment of the mA and/or kV according to patient size. - Use of iterative reconstruction technique. Radiation dose: CTDIvol = 23.81 mGy; DLP = 1704.06 mGy-cm. COMPARISON: No prior studies are available for comparison. FINDINGS: Lung bases: An NG tube is identified with the tip in the stomach. Subsegmental atelectasis is seen a t both lung bases. There are small bilateral gravitating pleural fluid accumulations. No pneumothora x is evident. Liver: Normal in size and in attenuation. There is no focal lesion. Gallbladder: The wall is not thickened. No radiopaque stones are identified. Bile ducts: The intra and extrahepatic bile ducts are normal in caliber. Pancreas: Appears normal with no mass or inflammation evident. Spleen: Normal in size with no focal lesion. Adrenals: Normal with no mass identified. Kidneys, ureters and bladder: The kidneys are normal in size and there is no mass, pathological calc ification, or hydronephrosis evident. There is no perinephric stranding. The ureters are normal in c aliber and no ureteroliths are identified. A House catheter is seen in the poorly distended bladder. Reproductive organs: Unremarkable. Stomach and bowel: The House catheter tip is seen in the stomach. The stomach is otherwise unremarka ble. Scattered diverticuli are seen within the colon particularly in the sigmoid region and there is mild bowel wall thickening at the sigmoid colon along with stranding extending into the adjacent fa t suspicious for mild changes of diverticulitis. There is no evidence of bowel obstruction. Appendix: The vermiform appendix is not discretely visualized. Peritoneum: No free intraperitoneal fluid or air is identified. Aorta: Normal in caliber with no aneurysmal dilatation. There is mild atherosclerotic vascular calci fication. IVC: Unremarkable. Lymph nodes: No pathologically enlarged nodes are identified. Osseous structures: There are old appearing fractures involving the left posterior eighth through te nth ribs. Moderate anterior spurring is seen within the inferior thoracic spine. Multiple metallic d ensities are seen to lie within the soft tissues lateral to the right ilium and there is soft tissue scarring. IMPRESSION: 1. Mild sigmoid diverticulitis. There is no evidence of bowel obstruction. The vermiform appendix i s not identified. An NG tube is in place with the tip in the stomach. 2. No evidence of nephrolithiasis, urinary outflow obstruction, or ureterolithiasis. A House cathet er is seen within a poorly distended bladder. 3. There is no free intraperitoneal fluid or air and no abscess is evident. 4. Mild atherosclerotic vascular calcification 5. Subsegmental atelectasis is seen within the lower lobes bilaterally with small gravitating pleur al fluid accumulations. 6. Old fractures involving the left posterior eighth through tenth ribs. 7. Multiple metallic densities are seen within the soft tissues lateral to the right ilium along wi th soft tissue scarring. Physician Jorge Date Time Electronically viewed and signed by Physician Jorge on 06/16/2017 18:45 RH/
[2017-06-16] MEDS: METOPROLOL 25 MG TAB NGT SCH (20:59)
[2017-06-16] MEDS: LEVETIRACETAM 1000 MG (PMX) 100 ML IVPB SCH (20:59)
[2017-06-17] VITALS (44 sets, daily range): BP systolic 113–185; BP diastolic 59–106; PULSE 69–100; RESP 12–22
[2017-06-17] MEDS: PROPOFOL 100 ML IV SCH ×5 (00:50→09:02)
[2017-06-17] MEDS: ACCU-CHEK XX SCH (00:51)
[2017-06-17] MEDS: SOD CHLORIDE 0.9% 1,000 ML IV SCH ×4 (00:53→20:58)
[2017-06-17] MEDS: INSULIN ASPART [NOVOLOG] 3 ML PEN SC SCH ×4 (06:00→17:50)
[2017-06-17] MEDS: PANTOPRAZOLE 40 MG INJ IV SCH (06:34)
--- NOTE | 2017-06-17 08:04 | RADRPT ---
PROCEDURE: XR Chest. CLINICAL INDICATION: Shortness of breath. TECHNIQUE: Single frontal view. COMPARISON: 06/16/2017. FINDINGS: The endotracheal tube should be advanced approximately 2 cm as the tip is 5 cm above the sharyn. Th e nasogastric tube tip is in the stomach. There is mild atelectasis at the lung bases and there is b ilateral interstitial disease consistent with pulmonary edema. The lungs are otherwise clear. The heart size is normal. There is no pleural effusion. IMPRESSION: 1. The endotracheal tube should be advanced approximately 2 cm. 2. Nasogastric tube tip in the stomach. 3. Pulmonary edema and atelectasis at the lung bases is unchanged from the prior chest radiograph. RPTAT: QQ .Jimi Cabrera MD, MD Date Time Electronically viewed and signed by .Jimi Cabrera MD, on 06/17/2017 08:04 .R/
[2017-06-17] MEDS: LEVETIRACETAM 1000 MG (PMX) 100 ML IVPB SCH ×2 (08:56→20:54)
[2017-06-17] MEDS: ASPIRIN (EC) 81 MG TAB PO SCH (08:56)
[2017-06-17] MEDS: METOPROLOL 25 MG TAB NGT SCH ×2 (08:56→20:50)
[2017-06-17] MEDS ORDERED: FENTAnyl (DRIP) 1000 mcg/100mL 100 ML IV SCH (09:30)
[2017-06-17] MEDS ORDERED: DEXMEDETOMIDINE HCL 200 MCG in SOD CHLORIDE 0.9% 48 ML IV SCH (10:00)
[2017-06-17] MEDS ORDERED: FENTAnyl 1,000 MCG in DEXTROSE 5% 80 ML IV SCH (10:00)
[2017-06-17] MEDS: ENOXAPARIN 40 MG/0.4 ML SYG SC SCH (10:38)
--- NOTE | 2017-06-17 11:57 | CONS ---
Date/Time of Note Date/Time of Note DATE: 06/17/17 TIME: 11:53 Assessment/Plan Assessment/Plan Additional Assessment/Plan Chest x-ray was reviewed from today which is showing left perihilar infiltrate. Ventilator settings; patient is on assist control of 12, tidal volume 600, PEEP of 0, 50% FiO2. Propofol 50 mics per kilogram per minute. Assessment and recommendations; 1. Patient admitted with altered mental status likely amphetamine induced. 2. Possible seizure activity. However no overt seizure activity noted. 3. Possibly developing left perihilar pneumonia. Add cefepime and Levaquin. Obtain follow-up chest x-ray in 24 hours. Ventilator settings have been adjusted, tidal volume has been decreased to 550, FiO2 dropped down to 45%. PEEP of 5 added. Patient will be given a sedation vacation 24 hours to assess mental status. Weaning from mechanical ventilation will depend upon adequate mental status recovery. Consultation Date/Type/Reason Admit Date/Time Jun 16, 2017 at 03:13 Initial Consult Date 06/16/17 Type of Consultation: Pulmonary/critical care 24 HR Interval Summary Free Text/Dictation Patient's condition remains critical. Still requiring high-dose sedation. Patient does become agitated whenever sedation dose is decreased. Patient however has remained hemodynamically stable. General exam; middle-aged male, orally intubated, sedated, currently in no distress. Patient appears quite overweight. Exam/Review of Systems Vital Signs Vitals Vital Signs Date Time Temp Pulse Resp B/P Pulse Ox O2 Delivery O2 Flow Rate FiO2 06/17/17 09:30 83 12 129/69 98 06/17/17 09:00 50 06/17/17 09:00 Mechanical Ventilator 06/17/17 08:00 97.9 06/16/17 04:09 6.0 Intake and Output 06/16/17 06/16/17 06/17/17 15:00 23:00 07:00 Intake Total 900.8 ml 1410 ml Output Total 150 ml 575 ml 660 ml Balance -150 ml 325.8 ml 750 ml Exam HEENT exam; supple neck, no JVD. No lymphadenopathy. Midline trachea. No thyromegaly. Pupils are small bilaterally. Patient has fair dentition. Orally intubated. Chest exam; clear to auscultation. S1-S2 audible, no murmurs. Regular rhythm. Abdomen exam; soft, protuberant. No organomegaly. Bowel sounds audible. Extremity exam; no peripheral edema. Pulses 1+ bilaterally. Patient is wearing a tracker device in the left ankle. DIRECTOR OF DONOR RELATIONS exam; patient is sedated. Results Result Diagram: 06/17/17 0448 06/17/17 0448 Results 24 hrs Laboratory Tests Test 06/16/17 11:57 06/16/17 12:27 06/16/17 14:17 06/16/17 17:18 Lactic Acid Level 1.4 Ammonia < 9 L Creatine Kinase 1295 H Creatine Kinase Index 0.7 Creatinine Kinase MB (Mass) 9.00 H Troponin I 0.064 Bedside Glucose 112 87 Blood Gas Specimen Source Blood arterial Arterial Blood Date Drawn 06/16/2017 2:20:59 PM Arterial Blood pH (Temp corrected) 7.361 Arterial Blood pCO2 (Temp correct) 45.6 H Arterial Blood pO2 (Temp corrected) 178.9 H Arterial Blood HCO3 25.2 Arterial Blood Base Excess -0.6 Arterial Blood Oxygen Saturation 99.1 H Andrew Test N/A Arterial Blood Gas Puncture Site Right Brachial Arterial Blood Carboxyhemoglobin 0.1 Arterial Blood Methemoglobin 0.3 Blood Gas A-a O2 Differential 488.5 H Oxyhemoglobin Percent 98.7 Total Hemoglobin 15.5 Blood Gas Temperature 37.0 Blood Gas Respiration Rate 12.0 Blood Gas Actual Respiration Rate 19 Blood Gas Modality VENT - AC FiO2 100.0 Blood Gas Tidal Volume 600.0 Blood Gas Low PEEP Setting 0 Blood Gas Notified Whom [place] Blood Gas Notified Time 06/16/2017 2:25:04 PM Test 06/16/17 18:34 06/17/17 00:49 06/17/17 04:48 06/17/17 06:49 Activated Partial Thromboplast Time 38.7 H Creatine Kinase 2397 #H Creatine Kinase Index 0.5 Creatinine Kinase MB (Mass) 12.50 H Troponin I 0.046 Bedside Glucose 88 115 White Blood Count 9.8 # Red Blood Count 4.41 L Hemoglobin 13.0 L Hematocrit 40.3 L Mean Corpuscular Volume 91.4 Mean Corpuscular Hemoglobin 29.5 Mean Corpuscular Hemoglobin Concent 32.3 Red Cell Distribution Width 13.5 Platelet Count 254 Mean Platelet Volume 9.8 Neutrophils % 73.0 Lymphocytes % 15.1 Monocytes % 10.2 Eosinophils % 0.9 Basophils % 0.3 Nucleated Red Blood Cells % 0.0 Neutrophils # 7.2 Lymphocytes # 1.5 Monocytes # 1.0 H Eosinophils # 0.1 Basophils # 0.0 Nucleated Red Blood Cells # 0.0 Sodium Level 142 Potassium Level 4.4 Chloride Level 110 Carbon Dioxide Level 26 Anion Gap 10 Blood Urea Nitrogen 15 Creatinine 0.89 Glucose Level 92 Lactic Acid Level 1.2 Calcium Level 8.6 Total Bilirubin 0.1 L Direct Bilirubin 0.00 Indirect Bilirubin 0.1 Aspartate Amino Transf (AST/SGOT) 65 #H Alanine Aminotransferase (ALT/SGPT) 54 Alkaline Phosphatase 63 Ammonia 14 Total Protein 5.7 L Albumin 2.8 L Globulin 2.90 Albumin/Globulin Ratio 0.96 Test 06/17/17 07:00 Blood Gas Specimen Source Blood arterial Arterial Blood Date Drawn 06/17/2017 7:30:20 AM Arterial Blood pH (Temp corrected) 7.377 Arterial Blood pCO2 (Temp correct) 39.5 Arterial Blood pO2 (Temp corrected) 101.3 H Arterial Blood HCO3 22.7 Arterial Blood Base Excess -2.2 Arterial Blood Oxygen Saturation 97.4 Andrew Test ACCEPTAB Arterial Blood Gas Puncture Site Right Radial Arterial Blood Carboxyhemoglobin 0.4 Arterial Blood Methemoglobin 0.2 Blood Gas A-a O2 Differential 283.1 H Oxyhemoglobin Percent 96.8 Total Hemoglobin 14.1 Blood Gas Temperature 37.0 Blood Gas Respiration Rate 12.0 Blood Gas Actual Respiration Rate 19 Blood Gas Modality VENT - AC FiO2 60.0 Blood Gas Tidal Volume 600.0 Blood Gas Low PEEP Setting 0 Blood Gas Notified Whom JLD Blood Gas Notified Time 06/17/2017 8:11:12 AM Medications Medications Current Medications Ondansetron HCl (Zofran Inj) 4 mg Q6H PRN IV NAUSEA AND/OR VOMITING; Start at 06:00 Acetaminophen (Tylenol Supp) 650 mg Q4H PRN [place] PAIN LEVEL 1-3 OR FEVER; Start 06/16/17 at 06:00 Morphine Sulfate (morphine) 2 mg Q4H PRN IV PAIN LEVEL 7-10; Start 06/16/17 at 06:00 Lorazepam (Ativan) 1 mg Q2H PRN IV ANXIETY; Start 06/16/17 at 06:00 Pantoprazole (Protonix Iv) 40 mg DAILY@06 IV Last administered on 06/17/17t 06 :34; Admin Dose 40 MG; Start 06/16/17 at 06:00 Aspirin (Halfprin) 81 mg DAILY PO Last administered on 06/17/17 08:56; Admin Dose 81 MG; Start 06/16/17 at 09:00 Diagnostic Test (Pha) (Accu-Chek) 1 ea 02 XX ; Start 06/17/17 at 02:00 Insulin Aspart (Novolog Insulin Pen) NOVOLOG *MODERATE* ALGORITHM Q6 SC ; Start 06/16/17 at 12:00 Miscellaneous Information 1 ea NOTE XX ; Start 06/16/17 at 10:00 Glucose (Glutose) 15 gm Q15M PRN PO DECREASED GLUCOSE; Start 06/16/17 at 10:00 Glucose (Glutose) 22.5 gm Q15M PRN PO DECREASED GLUCOSE; Start 06/16/17 at 10: 00 Dextrose (D50w Syringe) 25 ml Q15M PRN IV DECREASED GLUCOSE; Start 06/16/17 at 10:00 Dextrose (D50w Syringe) 50 ml Q15M PRN IV DECREASED GLUCOSE; Start 06/16/17 at 10:00 Glucagon (Glucagen) 1 mg Q15M PRN IM DECREASED GLUCOSE; Start 06/16/17 at 10: 00 Glucose 15 gm 15 gm Q15M PRN BUCCAL DECREASED GLUCOSE; Start 06/16/17 at 10:00 Sodium Chloride 1,000 ml @ 150 mls/hr Q6H40M IV Last administered on 06:50; Admin Dose 150 MLS/HR; Start 06/16/17 at 11:30 Levetiracetam (Keppra 1,000mg/ 100ml (Pmx)) 100 ml @ 400 mls/hr Q12 IVPB Last administered on 06/17/17 08:56; Admin Dose 400 MLS/HR; Start 06/16/17 at 21: 00 Lorazepam (Ativan) 2 mg Q10MIN PRN IV seizure; Start 06/16/17 at 11:30 Metoprolol Tartrate (Lopressor) 25 mg Q12 NGT Last administered on 06/17/17 08:56; Admin Dose 25 MG; Start 06/16/17 at 21:00 Enoxaparin Sodium 40 mg 40 mg DAILY SC Last administered on 06/17/17 10:38; Admin Dose 40 MG; Start 06/17/17 at 09:30 Dexmedetomidine HCl 200 mcg/ Sodium Chloride 50 ml @ 7.15 mls/hr TITRATE IV Last administered on 06/17/17 10:29; Admin Dose 7.15 MLS/HR; Start 06/17/17 at 10:00 Fentanyl/Dextrose (D5W) 100 ml @ 2.5 mls/hr TITRATE IV Last administered on 10:37; Admin Dose 2.5 MLS/HR; Start 06/17/17 at 10:00 LIANG HEMPHILL Jun 17, 2017 11:57
--- NOTE | 2017-06-17 12:26 | PN ---
Date/Time of Note Date/Time of Note DATE: 06/17/17 TIME: 12:25 Assessment/Plan VTE Prophylaxis VTE Prophylaxis Intervention: LMWH Lines/[facility] Per[facility] IV Urinary Cath still in place: No Assessment/Plan Assessment/Plan 1. Acute encephalopathy, drug-induced, questionable spice vs seizure - Neurology on board and recommendations appreciated. - EEG and MRI ordered 2. ?developing PNA - Pulmonology/CC on board and recommendations appreciated - Started on IV antibiotics 3. Atrial fibrillation with RVR, unknown if first event - Cardiology on board and recommendations appreciated. back in sinus rhythm and currently on BB - rate controlled - ECHO pending 4. SHANE - resolved. will continue to monitor 5. Diabetes Mellitus - A1c 6.9 - accuchecks and ISS 6. Rhabdo - CK elevated which may be secondary to seizure activity? - Continue IVF and monitor 7. Disposition - Extubated this afternoon. If remains stable will transfer to [facility] in next 24 hours >35 minutes of critical care time was spent with patient. All specialists notes reviewed as well as labs and imaging studies. Subjective 24 Hr Interval Summary Free Text/Dictation Patient seen this am and was following commands off sedation but very agitated. He was able to be weaned off ventilator this afternoon. No new issues. Exam/Review of Systems Vital Signs Vitals Vital Signs Date Time Temp Pulse Resp B/P Pulse Ox O2 Delivery O2 Flow Rate FiO2 06/17/17 09:30 83 12 129/69 98 06/17/17 09:00 50 06/17/17 09:00 Mechanical Ventilator 06/17/17 08:00 97.9 06/16/17 04:09 6.0 Intake and Output 06/16/17 06/16/17 06/17/17 15:00 23:00 07:00 Intake Total 900.8 ml 1410 ml Output Total 150 ml 575 ml 660 ml Balance -150 ml 325.8 ml 750 ml Exam General: Patient intubated and sedated at time of examination. per nurse, following commands Head: Normocephalic atraumatic Eyes: EOMI, pupils reactive to light, sluggish Neck: Supple, nontender, midline Respiratory: coarse to auscultation bilaterally Cardiovascular: regular rate and rhythm, no obvious murmurs Gastrointestinal: non-tender to palpation, bowel sounds heard. Neurological: Moves all extremities spontaneously, but sedated Skin: No new skin lesions Results Result Diagram: 06/17/17 0448 06/17/17 0448 Results 24 hrs Laboratory Tests Test 06/16/17 12:27 06/16/17 14:17 06/16/17 17:18 06/16/17 18:34 Bedside Glucose 112 87 Blood Gas Specimen Source Blood arterial Arterial Blood Date Drawn 06/16/2017 2:20:59 PM Arterial Blood pH (Temp corrected) 7.361 Arterial Blood pCO2 (Temp correct) 45.6 H Arterial Blood pO2 (Temp corrected) 178.9 H Arterial Blood HCO3 25.2 Arterial Blood Base Excess -0.6 Arterial Blood Oxygen Saturation 99.1 H Andrew Test N/A Arterial Blood Gas Puncture Site Right Brachial Arterial Blood Carboxyhemoglobin 0.1 Arterial Blood Methemoglobin 0.3 Blood Gas A-a O2 Differential 488.5 H Oxyhemoglobin Percent 98.7 Total Hemoglobin 15.5 Blood Gas Temperature 37.0 Blood Gas Respiration Rate 12.0 Blood Gas Actual Respiration Rate 19 Blood Gas Modality VENT - AC FiO2 100.0 Blood Gas Tidal Volume 600.0 Blood Gas Low PEEP Setting 0 Blood Gas Notified Whom [place] Blood Gas Notified Time 06/16/2017 2:25:04 PM Activated Partial Thromboplast Time 38.7 H Creatine Kinase 2397 #H Creatine Kinase Index 0.5 Creatinine Kinase MB (Mass) 12.50 H Troponin I 0.046 Test 06/17/17 00:49 06/17/17 04:48 06/17/17 06:49 06/17/17 07:00 Bedside Glucose 88 115 White Blood Count 9.8 # Red Blood Count 4.41 L Hemoglobin 13.0 L Hematocrit 40.3 L Mean Corpuscular Volume 91.4 Mean Corpuscular Hemoglobin 29.5 Mean Corpuscular Hemoglobin Concent 32.3 Red Cell Distribution Width 13.5 Platelet Count 254 Mean Platelet Volume 9.8 Neutrophils % 73.0 Lymphocytes % 15.1 Monocytes % 10.2 Eosinophils % 0.9 Basophils % 0.3 Nucleated Red Blood Cells % 0.0 Neutrophils # 7.2 Lymphocytes # 1.5 Monocytes # 1.0 H Eosinophils # 0.1 Basophils # 0.0 Nucleated Red Blood Cells # 0.0 Sodium Level 142 Potassium Level 4.4 Chloride Level 110 Carbon Dioxide Level 26 Anion Gap 10 Blood Urea Nitrogen 15 Creatinine 0.89 Glucose Level 92 Lactic Acid Level 1.2 Calcium Level 8.6 Total Bilirubin 0.1 L Direct Bilirubin 0.00 Indirect Bilirubin 0.1 Aspartate Amino Transf (AST/SGOT) 65 #H Alanine Aminotransferase (ALT/SGPT) 54 Alkaline Phosphatase 63 Ammonia 14 Total Protein 5.7 L Albumin 2.8 L Globulin 2.90 Albumin/Globulin Ratio 0.96 Blood Gas Specimen Source Blood arterial Arterial Blood Date Drawn 06/17/2017 7:30:20 AM Arterial Blood pH (Temp corrected) 7.377 Arterial Blood pCO2 (Temp correct) 39.5 Arterial Blood pO2 (Temp corrected) 101.3 H Arterial Blood HCO3 22.7 Arterial Blood Base Excess -2.2 Arterial Blood Oxygen Saturation 97.4 Andrew Test ACCEPTAB Arterial Blood Gas Puncture Site Right Radial Arterial Blood Carboxyhemoglobin 0.4 Arterial Blood Methemoglobin 0.2 Blood Gas A-a O2 Differential 283.1 H Oxyhemoglobin Percent 96.8 Total Hemoglobin 14.1 Blood Gas Temperature 37.0 Blood Gas Respiration Rate 12.0 Blood Gas Actual Respiration Rate 19 Blood Gas Modality VENT - AC FiO2 60.0 Blood Gas Tidal Volume 600.0 Blood Gas Low PEEP Setting 0 Blood Gas Notified Whom JLD Blood Gas Notified Time 06/17/2017 8:11:12 AM Test 06/17/17 11:57 Bedside Glucose 96 Medications Medications Current Medications Ondansetron HCl (Zofran Inj) 4 mg Q6H PRN IV NAUSEA AND/OR VOMITING; Start at 06:00 Acetaminophen (Tylenol Supp) 650 mg Q4H PRN [place] PAIN LEVEL 1-3 OR FEVER; Start 06/16/17 at 06:00 Morphine Sulfate (morphine) 2 mg Q4H PRN IV PAIN LEVEL 7-10; Start 06/16/17 at 06:00 Lorazepam (Ativan) 1 mg Q2H PRN IV ANXIETY; Start 06/16/17 at 06:00 Pantoprazole (Protonix Iv) 40 mg DAILY@06 IV Last administered on 06/17/17 06 :34; Admin Dose 40 MG; Start 06/16/17 at 06:00 Aspirin (Halfprin) 81 mg DAILY PO Last administered on 06/17/17 08:56; Admin Dose 81 MG; Start 06/16/17 at 09:00 Diagnostic Test (Pha) (Accu-Chek) 1 ea 02 XX ; Start 06/17/17 at 02:00 Insulin Aspart (Novolog Insulin Pen) NOVOLOG *MODERATE* ALGORITHM Q6 SC ; Start 06/16/17 at 12:00 Miscellaneous Information 1 ea NOTE XX ; Start 06/16/17 at 10:00 Glucose (Glutose) 15 gm Q15M PRN PO DECREASED GLUCOSE; Start 06/16/17 at 10:00 Glucose (Glutose) 22.5 gm Q15M PRN PO DECREASED GLUCOSE; Start 06/16/17 at 10: 00 Dextrose (D50w Syringe) 25 ml Q15M PRN IV DECREASED GLUCOSE; Start 06/16/17 at 10:00 Dextrose (D50w Syringe) 50 ml Q15M PRN IV DECREASED GLUCOSE; Start 06/16/17 at 10:00 Glucagon (Glucagen) 1 mg Q15M PRN IM DECREASED GLUCOSE; Start 06/16/17 at 10: 00 Glucose 15 gm 15 gm Q15M PRN BUCCAL DECREASED GLUCOSE; Start 06/16/17 at 10:00 Sodium Chloride 1,000 ml @ 150 mls/hr Q6H40M IV Last administered on 06:50; Admin Dose 150 MLS/HR; Start 06/16/17 at 11:30 Levetiracetam (Keppra 1,000mg/ 100ml (Pmx)) 100 ml @ 400 mls/hr Q12 IVPB Last administered on 06/17/17 08:56; Admin Dose 400 MLS/HR; Start 06/16/17 at 21: 00 Lorazepam (Ativan) 2 mg Q10MIN PRN IV seizure; Start 06/16/17 at 11:30 Metoprolol Tartrate (Lopressor) 25 mg Q12 NGT Last administered on 06/17/17 08:56; Admin Dose 25 MG; Start 06/16/17 at 21:00 Enoxaparin Sodium 40 mg 40 mg DAILY SC Last administered on 06/17/17 10:38; Admin Dose 40 MG; Start 06/17/17 at 09:30 Dexmedetomidine HCl 200 mcg/ Sodium Chloride 50 ml @ 7.15 mls/hr TITRATE IV Last administered on 06/17/17 10:29; Admin Dose 7.15 MLS/HR; Start 06/17/17 at 10:00 Fentanyl 1000 mcg/ Dextrose 100 ml @ 2.5 mls/hr TITRATE IV Last administered on 06/17/17t 10:37; Admin Dose 2.5 MLS/HR; Start 06/17/17 at 10:00 Cefepime HCl (Maxipime 1gm/50 ml (Pmx)) 50 ml @ 100 mls/hr Q12 IVPB ; Start at 12:00 JERILYN ACEVEDO MD Jun 17, 2017 12:25
--- NOTE | 2017-06-17 12:41 | CONS ---
Date/Time of Note Date/Time of Note DATE: 06/17/17 TIME: 12:39 Consult Date/Type/Reason Admit Date/Time Jun 16, 2017 at 03:13 Initial Consult Date 06/16/17 Type of Consultation: Neurology Reason for Consultation seizure eval Objective Vital Signs Date Time Temp Pulse Resp B/P Pulse Ox O2 Delivery O2 Flow Rate FiO2 06/17/17 10:30 45 06/17/17 09:30 83 12 129/69 98 06/17/17 09:00 Mechanical Ventilator 06/17/17 08:00 97.9 06/16/17 04:09 6.0 Intake and Output 06/16/17 06/16/17 06/17/17 15:00 23:00 07:00 Intake Total 900.8 ml 1410 ml Output Total 150 ml 575 ml 660 ml Balance -150 ml 325.8 ml 750 ml Exam arousable intubated on sedation refusing to open his eyes can follow simple commands moving all extremities antigravity Results/Medications Result Diagram: 06/17/17 0448 06/17/17 0448 Results 24 hrs Laboratory Tests Test 06/16/17 14:17 06/16/17 17:18 06/16/17 18:34 06/17/17 00:49 Blood Gas Specimen Source Blood arterial Arterial Blood Date Drawn 06/16/2017 2:20:59 PM Arterial Blood pH (Temp corrected) 7.361 Arterial Blood pCO2 (Temp correct) 45.6 H Arterial Blood pO2 (Temp corrected) 178.9 H Arterial Blood HCO3 25.2 Arterial Blood Base Excess -0.6 Arterial Blood Oxygen Saturation 99.1 H Andrew Test N/A Arterial Blood Gas Puncture Site Right Brachial Arterial Blood Carboxyhemoglobin 0.1 Arterial Blood Methemoglobin 0.3 Blood Gas A-a O2 Differential 488.5 H Oxyhemoglobin Percent 98.7 Total Hemoglobin 15.5 Blood Gas Temperature 37.0 Blood Gas Respiration Rate 12.0 Blood Gas Actual Respiration Rate 19 Blood Gas Modality VENT - AC FiO2 100.0 Blood Gas Tidal Volume 600.0 Blood Gas Low PEEP Setting 0 Blood Gas Notified Whom [place] Blood Gas Notified Time 06/16/2017 2:25:04 PM Bedside Glucose 87 88 Activated Partial Thromboplast Time 38.7 H Creatine Kinase 2397 #H Creatine Kinase Index 0.5 Creatinine Kinase MB (Mass) 12.50 H Troponin I 0.046 Test 06/17/17 04:48 06/17/17 06:49 06/17/17 07:00 06/17/17 11:57 White Blood Count 9.8 # Red Blood Count 4.41 L Hemoglobin 13.0 L Hematocrit 40.3 L Mean Corpuscular Volume 91.4 Mean Corpuscular Hemoglobin 29.5 Mean Corpuscular Hemoglobin Concent 32.3 Red Cell Distribution Width 13.5 Platelet Count 254 Mean Platelet Volume 9.8 Neutrophils % 73.0 Lymphocytes % 15.1 Monocytes % 10.2 Eosinophils % 0.9 Basophils % 0.3 Nucleated Red Blood Cells % 0.0 Neutrophils # 7.2 Lymphocytes # 1.5 Monocytes # 1.0 H Eosinophils # 0.1 Basophils # 0.0 Nucleated Red Blood Cells # 0.0 Sodium Level 142 Potassium Level 4.4 Chloride Level 110 Carbon Dioxide Level 26 Anion Gap 10 Blood Urea Nitrogen 15 Creatinine 0.89 Glucose Level 92 Lactic Acid Level 1.2 Calcium Level 8.6 Total Bilirubin 0.1 L Direct Bilirubin 0.00 Indirect Bilirubin 0.1 Aspartate Amino Transf (AST/SGOT) 65 #H Alanine Aminotransferase (ALT/SGPT) 54 Alkaline Phosphatase 63 Ammonia 14 Total Protein 5.7 L Albumin 2.8 L Globulin 2.90 Albumin/Globulin Ratio 0.96 Bedside Glucose 115 96 Blood Gas Specimen Source Blood arterial Arterial Blood Date Drawn 06/17/2017 7:30:20 AM Arterial Blood pH (Temp corrected) 7.377 Arterial Blood pCO2 (Temp correct) 39.5 Arterial Blood pO2 (Temp corrected) 101.3 H Arterial Blood HCO3 22.7 Arterial Blood Base Excess -2.2 Arterial Blood Oxygen Saturation 97.4 Andrew Test ACCEPTAB Arterial Blood Gas Puncture Site Right Radial Arterial Blood Carboxyhemoglobin 0.4 Arterial Blood Methemoglobin 0.2 Blood Gas A-a O2 Differential 283.1 H Oxyhemoglobin Percent 96.8 Total Hemoglobin 14.1 Blood Gas Temperature 37.0 Blood Gas Respiration Rate 12.0 Blood Gas Actual Respiration Rate 19 Blood Gas Modality VENT - AC FiO2 60.0 Blood Gas Tidal Volume 600.0 Blood Gas Low PEEP Setting 0 Blood Gas Notified Whom JLD Blood Gas Notified Time 06/17/2017 8:11:12 AM Medications Current Medications Ondansetron HCl (Zofran Inj) 4 mg Q6H PRN IV NAUSEA AND/OR VOMITING; Start at 06:00 Acetaminophen (Tylenol Supp) 650 mg Q4H PRN [place] PAIN LEVEL 1-3 OR FEVER; Start 06/16/17 at 06:00 Morphine Sulfate (morphine) 2 mg Q4H PRN IV PAIN LEVEL 7-10; Start 06/16/17 at 06:00 Lorazepam (Ativan) 1 mg Q2H PRN IV ANXIETY; Start 06/16/17 at 06:00 Pantoprazole (Protonix Iv) 40 mg DAILY@06 IV Last administered on 06/17/17 06 :34; Admin Dose 40 MG; Start 06/16/17 at 06:00 Aspirin (Halfprin) 81 mg DAILY PO Last administered on 06/17/17 08:56; Admin Dose 81 MG; Start 06/16/17 at 09:00 Diagnostic Test (Pha) (Accu-Chek) 1 ea 02 XX ; Start 06/17/17 at 02:00 Insulin Aspart (Novolog Insulin Pen) NOVOLOG *MODERATE* ALGORITHM Q6 SC ; Start 06/16/17 at 12:00 Miscellaneous Information 1 ea NOTE XX ; Start 06/16/17 at 10:00 Glucose (Glutose) 15 gm Q15M PRN PO DECREASED GLUCOSE; Start 06/16/17 at 10:00 Glucose (Glutose) 22.5 gm Q15M PRN PO DECREASED GLUCOSE; Start 06/16/17 at 10: 00 Dextrose (D50w Syringe) 25 ml Q15M PRN IV DECREASED GLUCOSE; Start 06/16/17 at 10:00 Dextrose (D50w Syringe) 50 ml Q15M PRN IV DECREASED GLUCOSE; Start 06/16/17 at 10:00 Glucagon (Glucagen) 1 mg Q15M PRN IM DECREASED GLUCOSE; Start 06/16/17 at 10: 00 Glucose 15 gm 15 gm Q15M PRN BUCCAL DECREASED GLUCOSE; Start 06/16/17 at 10:00 Sodium Chloride 1,000 ml @ 150 mls/hr Q6H40M IV Last administered on 06:50; Admin Dose 150 MLS/HR; Start 06/16/17 at 11:30 Levetiracetam (Keppra 1,000mg/ 100ml (Pmx)) 100 ml @ 400 mls/hr Q12 IVPB Last administered on 06/17/17 08:56; Admin Dose 400 MLS/HR; Start 06/16/17 at 21: 00 Lorazepam (Ativan) 2 mg Q10MIN PRN IV seizure; Start 06/16/17 at 11:30 Metoprolol Tartrate (Lopressor) 25 mg Q12 NGT Last administered on 06/17/17 08:56; Admin Dose 25 MG; Start 06/16/17 at 21:00 Enoxaparin Sodium 40 mg 40 mg DAILY SC Last administered on 06/17/17 10:38; Admin Dose 40 MG; Start 06/17/17 at 09:30 Dexmedetomidine HCl 200 mcg/ Sodium Chloride 50 ml @ 7.15 mls/hr TITRATE IV Last administered on 06/17/17 10:29; Admin Dose 7.15 MLS/HR; Start 06/17/17 at 10:00 Fentanyl 1000 mcg/ Dextrose 100 ml @ 2.5 mls/hr TITRATE IV Last administered on 06/17/17 10:37; Admin Dose 2.5 MLS/HR; Start 06/17/17 at 10:00 Cefepime HCl (Maxipime 1gm/50 ml (Pmx)) 50 ml @ 100 mls/hr Q12 IVPB ; Start at 12:00 Assessment/Plan Chief Complaint/Hosp Course 46 yo male with history of methamphetamine use in the past was brought into emergency room for possible syncope. He initially complained of dizziness and lightheadedness while he was home w LOC on admission became confused requiring intubation. Plan 1 MRI of the brain 2 EEG 3 avoid sedation if possible 4 seizure precautions 5 neuro checks per ICU protocol 6 will follow Problems: ERIC QUEZADA MD Jun 17, 2017 12:41
[2017-06-17] MEDS: CEFEPIME 1GM/50 ML (PMX) 50 ML IVPB SCH ×2 (12:42→20:50)
[2017-06-18] VITALS (23 sets, daily range): BP systolic 99–143; BP diastolic 60–95; PULSE 82–112; RESP 10–21
[2017-06-18] MEDS: ACCU-CHEK XX SCH (02:33)
[2017-06-18] MEDS: SOD CHLORIDE 0.9% 1,000 ML IV SCH ×4 (03:00→15:41)
[2017-06-18] MEDS: PANTOPRAZOLE (EC) 40 MG TAB PO SCH (05:36)
[2017-06-18] MEDS: INSULIN ASPART [NOVOLOG] 3 ML PEN SC SCH ×5 (05:39→20:12)
--- NOTE | 2017-06-18 08:04 | RADRPT ---
PROCEDURE: XR Chest. CLINICAL INDICATION: Pneumonia TECHNIQUE: Single AP portable chest. COMPARISON: 06/17/2017 Chest x-ray FINDINGS: The cardiac silhouette is enlarged but stable in size. Mild vascular congestion. Atherosclerotic ca lcification of the aorta. No focal consolidation or pleural effusion. No pneumothorax. The osseous s tructures and soft tissues are unremarkable. IMPRESSION: 1. Cardiomegaly and mild vascular congestion. Superimposed infectious process cannot be excluded. 2. No pleural effusion or focal consolidation . RPTAT:AAJJ Raven Arias Physician Date Time Electronically viewed and signed by Physician Ester on 06/18/2017 08:04 DALE/
[2017-06-18] MEDS: CEFEPIME 1GM/50 ML (PMX) 50 ML IVPB SCH ×2 (09:34→21:13)
[2017-06-18] MEDS: METOPROLOL 25 MG TAB NGT SCH ×2 (09:34→20:12)
[2017-06-18] MEDS: LEVETIRACETAM 1000 MG (PMX) 100 ML IVPB SCH ×2 (09:34→20:57)
[2017-06-18] MEDS: ASPIRIN (EC) 81 MG TAB PO SCH (09:35)
[2017-06-18] MEDS: ENOXAPARIN 40 MG/0.4 ML SYG SC SCH (09:37)
--- NOTE | 2017-06-18 11:13 | CONS ---
Date/Time of Note Date/Time of Note DATE: 06/18/17 TIME: 11:11 Assessment/Plan Assessment/Plan Additional Assessment/Plan Chest x-ray was reviewed from today which is showing mild left perihilar infiltrate. Assessment recommendations; 1. Patient admitted with likely amphetamine overdose with seizure activity now extubated yesterday with excellent overall clinical status. Continue current treatment. Patient can be transferred to the medical floor. Consultation Date/Type/Reason Admit Date/Time Jun 16, 2017 at 03:13 Initial Consult Date 06/16/17 Type of Consultation: Pulmonary/critical care 24 HR Interval Summary Free Text/Dictation Patient's condition is markedly improved. He was successfully extubated yesterday afternoon. Has remained hemodynamically stable. No overt seizure activity noted. General exam; young male, morbidly obese, awake and alert. Currently in no distress. Exam/Review of Systems Vital Signs Vitals Vital Signs Date Time Temp Pulse Resp B/P Pulse Ox O2 Delivery O2 Flow Rate FiO2 06/18/17 08:30 108 18 126/78 65 Nasal Cannula 06/18/17 08:00 98.5 06/18/17 02:21 4.0 06/17/17 10:30 60 Intake and Output 06/17/17 06/17/17 06/18/17 15:00 23:00 07:00 Intake Total 1433.28 ml 1560 ml 1320 ml Output Total 700 ml 1050 ml 900 ml Balance 733.28 ml 510 ml 420 ml Exam HEENT exam; supple neck, no JVD. No lymphadenopathy. Midline trachea. No thyromegaly. Patient has fair dentition. Pupils are midsize and reactive to light. Chest exam; clear to auscultation. S1-S2 audible, no murmurs. Regular rhythm. Abdomen exam; treatment, nontender. No organomegaly. Bowel sounds audible. Extremity exam; no peripheral edema. Pulses 2+ bilaterally. 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 Results Result Diagram: 06/17/17 0448 06/17/17 0448 Results 24 hrs Laboratory Tests Test 06/17/17 11:57 06/17/17 13:00 06/17/17 17:08 06/18/17 00:23 Bedside Glucose 96 119 126 Blood Gas Specimen Source Blood arterial Arterial Blood Date Drawn 06/17/2017 1:00:27 PM Arterial Blood pH (Temp corrected) 7.363 Arterial Blood pCO2 (Temp correct) 38.0 Arterial Blood pO2 (Temp corrected) 98.9 Arterial Blood HCO3 21.1 L Arterial Blood Base Excess -3.8 L Arterial Blood Oxygen Saturation 97.2 Andrew Test ACCEPTAB Arterial Blood Gas Puncture Site Right Radial Arterial Blood Carboxyhemoglobin 0.3 Arterial Blood Methemoglobin 0.2 Blood Gas A-a O2 Differential 178.7 H Oxyhemoglobin Percent 96.7 Total Hemoglobin 13.9 Blood Gas Temperature 37.0 Blood Gas Actual Respiration Rate 13 Blood Gas Modality VENT - CPAP FiO2 45.0 Blood Gas Low PEEP Setting 5.0 Blood Gas Pressure Support 10 Blood Gas Notified Whom JLD Blood Gas Notified Time 06/17/2017 1:11:01 PM Test 06/18/17 02:32 06/18/17 05:38 Bedside Glucose 112 110 Medications Medications Current Medications Ondansetron HCl (Zofran Inj) 4 mg Q6H PRN IV NAUSEA AND/OR VOMITING; Start at 06:00 Acetaminophen (Tylenol Supp) 650 mg Q4H PRN [place] PAIN LEVEL 1-3 OR FEVER; Start 06/16/17 at 06:00 Morphine Sulfate (morphine) 2 mg Q4H PRN IV PAIN LEVEL 7-10; Start 06/16/17 at 06:00 Lorazepam (Ativan) 1 mg Q2H PRN IV ANXIETY; Start 06/16/17 at 06:00 Aspirin (Halfprin) 81 mg DAILY PO Last administered on 06/18/17 09:35; Admin Dose 81 MG; Start 06/16/17 at 09:00 Diagnostic Test (Pha) (Accu-Chek) 1 ea 02 XX Last administered on 06/18/17 02 :33; Admin Dose 1 EA; Start 06/17/17 at 02:00 Insulin Aspart (Novolog Insulin Pen) NOVOLOG *MODERATE* ALGORITHM Q6 SC ; Start 06/16/17 at 12:00 Miscellaneous Information 1 ea NOTE XX ; Start 06/16/17 at 10:00 Glucose (Glutose) 15 gm Q15M PRN PO DECREASED GLUCOSE; Start 06/16/17 at 10:00 Glucose (Glutose) 22.5 gm Q15M PRN PO DECREASED GLUCOSE; Start 06/16/17 at 10: 00 Dextrose (D50w Syringe) 25 ml Q15M PRN IV DECREASED GLUCOSE; Start 06/16/17 at 10:00 Dextrose (D50w Syringe) 50 ml Q15M PRN IV DECREASED GLUCOSE; Start 06/16/17 at 10:00 Glucagon (Glucagen) 1 mg Q15M PRN IM DECREASED GLUCOSE; Start 06/16/17 at 10: 00 Glucose 15 gm 15 gm Q15M PRN BUCCAL DECREASED GLUCOSE; Start 06/16/17 at 10:00 Sodium Chloride 1,000 ml @ 150 mls/hr Q6H40M IV Last administered on 09:38; Admin Dose 150 MLS/HR; Start 06/16/17 at 11:30 Levetiracetam (Keppra 1,000mg/ 100ml (Pmx)) 100 ml @ 400 mls/hr Q12 IVPB Last administered on 06/18/17 09:34; Admin Dose 400 MLS/HR; Start 06/16/17 at 21: 00 Lorazepam (Ativan) 2 mg Q10MIN PRN IV seizure; Start 06/16/17 at 11:30 Metoprolol Tartrate (Lopressor) 25 mg Q12 NGT Last administered on 06/18/17 09:34; Admin Dose 25 MG; Start 06/16/17 at 21:00 Enoxaparin Sodium 40 mg 40 mg DAILY SC Last administered on 06/18/17 09:37; Admin Dose 40 MG; Start 06/17/17 at 09:30 Dexmedetomidine HCl 200 mcg/ Sodium Chloride 50 ml @ 7.15 mls/hr TITRATE IV Last administered on 06/17/17 10:29; Admin Dose 7.15 MLS/HR; Start 06/17/17 at 10:00 Fentanyl 1000 mcg/ Dextrose 100 ml @ 2.5 mls/hr TITRATE IV Last administered on 06/17/17 10:37; Admin Dose 2.5 MLS/HR; Start 06/17/17 at 10:00 Cefepime HCl (Maxipime 1gm/50 ml (Pmx)) 50 ml @ 100 mls/hr Q12 IVPB Last administered on 06/18/17 09:34; Admin Dose 100 MLS/HR; Start 06/17/17 at 12: 00 Pantoprazole (Protonix Tab) 40 mg DAILY@06 PO Last administered on 06/18/17 05:36; Admin Dose 40 MG; Start 06/18/17 at 06:00 LIANG HEMPHILL Jun 18, 2017 11:13
--- NOTE | 2017-06-18 11:41 | CONS ---
Date/Time of Note Date/Time of Note DATE: 06/18/17 TIME: 11:40 Consult Date/Type/Reason Admit Date/Time Jun 16, 2017 at 03:13 Initial Consult Date 06/16/17 Type of Consultation: Neurology Reason for Consultation syncope eval Subjective extubated awake and alert follows commands no seizures Objective Vital Signs Date Time Temp Pulse Resp B/P Pulse Ox O2 Delivery O2 Flow Rate FiO2 06/18/17 11:30 84 20 99/74 95 Nasal Cannula 06/18/17 08:00 98.5 06/18/17 02:21 4.0 06/17/17 10:30 60 Intake and Output 06/17/17 06/17/17 06/18/17 14:59 22:59 06:59 Intake Total 1493.28 ml 1440 ml 1590 ml Output Total 600 ml 1150 ml 900 ml Balance 893.28 ml 290 ml 690 ml Exam awake and alert oriented to the hospital and himself follows simple commands falls back asleep easily CN: II-XII intact Motor 5/5 throughout Results/Medications Result Diagram: 06/17/17 0448 06/17/17 0448 Results 24 hrs Laboratory Tests Test 06/17/17 11:57 06/17/17 13:00 06/17/17 17:08 06/18/17 00:23 Bedside Glucose 96 119 126 Blood Gas Specimen Source Blood arterial Arterial Blood Date Drawn 06/17/2017 1:00:27 PM Arterial Blood pH (Temp corrected) 7.363 Arterial Blood pCO2 (Temp correct) 38.0 Arterial Blood pO2 (Temp corrected) 98.9 Arterial Blood HCO3 21.1 L Arterial Blood Base Excess -3.8 L Arterial Blood Oxygen Saturation 97.2 Andrew Test ACCEPTAB Arterial Blood Gas Puncture Site Right Radial Arterial Blood Carboxyhemoglobin 0.3 Arterial Blood Methemoglobin 0.2 Blood Gas A-a O2 Differential 178.7 H Oxyhemoglobin Percent 96.7 Total Hemoglobin 13.9 Blood Gas Temperature 37.0 Blood Gas Actual Respiration Rate 13 Blood Gas Modality VENT - CPAP FiO2 45.0 Blood Gas Low PEEP Setting 5.0 Blood Gas Pressure Support 10 Blood Gas Notified Whom JLD Blood Gas Notified Time 06/17/2017 1:11:01 PM Test 06/18/17 02:32 06/18/17 05:38 Bedside Glucose 112 110 Medications Current Medications Ondansetron HCl (Zofran Inj) 4 mg Q6H PRN IV NAUSEA AND/OR VOMITING; Start at 06:00 Acetaminophen (Tylenol Supp) 650 mg Q4H PRN [place] PAIN LEVEL 1-3 OR FEVER; Start 06/16/17 at 06:00 Morphine Sulfate (morphine) 2 mg Q4H PRN IV PAIN LEVEL 7-10; Start 06/16/17 at 06:00 Lorazepam (Ativan) 1 mg Q2H PRN IV ANXIETY; Start 06/16/17 at 06:00 Aspirin (Halfprin) 81 mg DAILY PO Last administered on 06/18/17 09:35; Admin Dose 81 MG; Start 06/16/17 at 09:00 Diagnostic Test (Pha) (Accu-Chek) 1 ea 02 XX Last administered on 06/18/17 02 :33; Admin Dose 1 EA; Start 06/17/17 at 02:00 Insulin Aspart (Novolog Insulin Pen) NOVOLOG *MODERATE* ALGORITHM Q6 SC ; Start 06/16/17 at 12:00 Miscellaneous Information 1 ea NOTE XX ; Start 06/16/17 at 10:00 Glucose (Glutose) 15 gm Q15M PRN PO DECREASED GLUCOSE; Start 06/16/17 at 10:00 Glucose (Glutose) 22.5 gm Q15M PRN PO DECREASED GLUCOSE; Start 06/16/17 at 10: 00 Dextrose (D50w Syringe) 25 ml Q15M PRN IV DECREASED GLUCOSE; Start 06/16/17 at 10:00 Dextrose (D50w Syringe) 50 ml Q15M PRN IV DECREASED GLUCOSE; Start 06/16/17 at 10:00 Glucagon (Glucagen) 1 mg Q15M PRN IM DECREASED GLUCOSE; Start 06/16/17 at 10: 00 Glucose 15 gm 15 gm Q15M PRN BUCCAL DECREASED GLUCOSE; Start 06/16/17 at 10:00 Sodium Chloride 1,000 ml @ 150 mls/hr Q6H40M IV Last administered on 09:38; Admin Dose 150 MLS/HR; Start 06/16/17 at 11:30 Levetiracetam (Keppra 1,000mg/ 100ml (Pmx)) 100 ml @ 400 mls/hr Q12 IVPB Last administered on 06/18/17 09:34; Admin Dose 400 MLS/HR; Start 06/16/17 at 21: 00 Lorazepam (Ativan) 2 mg Q10MIN PRN IV seizure; Start 06/16/17 at 11:30 Metoprolol Tartrate (Lopressor) 25 mg Q12 NGT Last administered on 06/18/17 09:34; Admin Dose 25 MG; Start 06/16/17 at 21:00 Enoxaparin Sodium 40 mg 40 mg DAILY SC Last administered on 06/18/17 09:37; Admin Dose 40 MG; Start 06/17/17 at 09:30 Dexmedetomidine HCl 200 mcg/ Sodium Chloride 50 ml @ 7.15 mls/hr TITRATE IV Last administered on 06/17/17 10:29; Admin Dose 7.15 MLS/HR; Start 06/17/17 at 10:00 Fentanyl 1000 mcg/ Dextrose 100 ml @ 2.5 mls/hr TITRATE IV Last administered on 06/17/17 10:37; Admin Dose 2.5 MLS/HR; Start 06/17/17 at 10:00 Cefepime HCl (Maxipime 1gm/50 ml (Pmx)) 50 ml @ 100 mls/hr Q12 IVPB Last administered on 06/18/17 09:34; Admin Dose 100 MLS/HR; Start 06/17/17 at 12: 00 Pantoprazole (Protonix Tab) 40 mg DAILY@06 PO Last administered on 06/18/17 05:36; Admin Dose 40 MG; Start 06/18/17 at 06:00 Assessment/Plan Chief Complaint/Hosp Course 46 yo male with history of methamphetamine use in the past was brought into emergency room for possible syncope. He initially complained of dizziness and lightheadedness while he was home w LOC on admission became confused requiring intubation. Plan MRI Brain pending EEG pending encephalopathy improving Problems: ERIC QUEZADA MD Jun 18, 2017 11:41
--- NOTE | 2017-06-18 12:12 | PN ---
Date/Time of Note Date/Time of Note DATE: 06/18/17 TIME: 12:12 Assessment/Plan VTE Prophylaxis VTE Prophylaxis Intervention: LMWH Lines/Catheters IV [facility]from [facility] Peripheral IV Urinary Cath still in place: No Assessment/Plan Assessment/Plan 1. Acute encephalopathy, drug-induced, questionable spice vs seizure- improving - Patient denies taking anything prior to LOC event - Neurology on board and recommendations appreciated. Awaiting results of MRI and EEG 2. ?developing PNA - Pulmonology/CC on board and recommendations appreciated. Continue on antibiotics 3. Atrial fibrillation with RVR, unknown if first event - Cardiology on board and recommendations appreciated. back in sinus rhythm and currently on BB - rate controlled - ECHO showed grade 1 diastolic dysfunction with EF 55% 4. SHANE - resolved. will continue to monitor 5. Diabetes Mellitus - A1c 6.9 - accuchecks and ISS 6. Rhabdo - CK elevated which may be secondary to seizure activity? - Continue IVF and monitor 7. Disposition - Patient stable and can be transferred to Med/Surg >35 minutes of critical care time was spent with patient. All specialists notes were reviewed as well as imaging and lab results. Subjective 24 Hr Interval Summary Free Text/Dictation Patient extubated and no new complaints. States sleepy but denies any chest pain, shortness of breath, nausea, vomiting, or abdominal issues. Denies taking anything prior to event leading to admission. Exam/Review of Systems Vital Signs Vitals Vital Signs Date Time Temp Pulse Resp B/P Pulse Ox O2 Delivery O2 Flow Rate FiO2 06/18/17 12:00 89 06/18/17 11:30 20 99/74 95 Nasal Cannula 06/18/17 08:00 98.5 06/18/17 08:00 2.0 06/17/17 10:30 60 Intake and Output 06/17/17 06/17/17 06/18/17 15:00 23:00 07:00 Intake Total 1433.28 ml 1560 ml 1320 ml Output Total 700 ml 1050 ml 900 ml Balance 733.28 ml 510 ml 420 ml Exam General: Patient awake and alert. In no acute distress Head: Normocephalic atraumatic Eyes: EOMI, pupils reactive to light, sluggish Neck: Supple, nontender, midline Respiratory: coarse to auscultation bilaterally Cardiovascular: regular rate and rhythm, no obvious murmurs Gastrointestinal: non-tender to palpation, bowel sounds heard. Neurological: Moves all extremities spontaneously Skin: No new skin lesions Results Result Diagram: 06/17/17 0448 06/17/17 0448 Results 24 hrs Laboratory Tests Test 06/17/17 13:00 06/17/17 17:08 06/18/17 00:23 06/18/17 02:32 Blood Gas Specimen Source Blood arterial Arterial Blood Date Drawn 06/17/2017 1:00:27 PM Arterial Blood pH (Temp corrected) 7.363 Arterial Blood pCO2 (Temp correct) 38.0 Arterial Blood pO2 (Temp corrected) 98.9 Arterial Blood HCO3 21.1 L Arterial Blood Base Excess -3.8 L Arterial Blood Oxygen Saturation 97.2 Andrew Test ACCEPTAB Arterial Blood Gas Puncture Site Right Radial Arterial Blood Carboxyhemoglobin 0.3 Arterial Blood Methemoglobin 0.2 Blood Gas A-a O2 Differential 178.7 H Oxyhemoglobin Percent 96.7 Total Hemoglobin 13.9 Blood Gas Temperature 37.0 Blood Gas Actual Respiration Rate 13 Blood Gas Modality VENT - CPAP FiO2 45.0 Blood Gas Low PEEP Setting 5.0 Blood Gas Pressure Support 10 Blood Gas Notified Whom JLD Blood Gas Notified Time 06/17/2017 1:11:01 PM Bedside Glucose 119 126 112 Test 06/18/17 05:38 Bedside Glucose 110 Medications Medications Current Medications Ondansetron HCl (Zofran Inj) 4 mg Q6H PRN IV NAUSEA AND/OR VOMITING; Start at 06:00 Acetaminophen (Tylenol Supp) 650 mg Q4H PRN [place] PAIN LEVEL 1-3 OR FEVER; Start 06/16/17 at 06:00 Morphine Sulfate (morphine) 2 mg Q4H PRN IV PAIN LEVEL 7-10; Start 06/16/17 at 06:00 Lorazepam (Ativan) 1 mg Q2H PRN IV ANXIETY; Start 06/16/17 at 06:00 Aspirin (Halfprin) 81 mg DAILY PO Last administered on 06/18/17 09:35; Admin Dose 81 MG; Start 06/16/17 at 09:00 Diagnostic Test (Pha) (Accu-Chek) 1 ea 02 XX Last administered on 06/18/17 02 :33; Admin Dose 1 EA; Start 06/17/17 at 02:00 Insulin Aspart (Novolog Insulin Pen) NOVOLOG *MODERATE* ALGORITHM Q6 SC ; Start 06/16/17 at 12:00 Miscellaneous Information 1 ea NOTE XX ; Start 06/16/17 at 10:00 Glucose (Glutose) 15 gm Q15M PRN PO DECREASED GLUCOSE; Start 06/16/17 at 10:00 Glucose (Glutose) 22.5 gm Q15M PRN PO DECREASED GLUCOSE; Start 06/16/17 at 10: 00 Dextrose (D50w Syringe) 25 ml Q15M PRN IV DECREASED GLUCOSE; Start 06/16/17 at 10:00 Dextrose (D50w Syringe) 50 ml Q15M PRN IV DECREASED GLUCOSE; Start 06/16/17 at 10:00 Glucagon (Glucagen) 1 mg Q15M PRN IM DECREASED GLUCOSE; Start 06/16/17 at 10: 00 Glucose 15 gm 15 gm Q15M PRN BUCCAL DECREASED GLUCOSE; Start 06/16/17 at 10:00 Levetiracetam (Keppra 1,000mg/ 100ml (Pmx)) 100 ml @ 400 mls/hr Q12 IVPB Last administered on 06/18/17 09:34; Admin Dose 400 MLS/HR; Start 06/16/17 at 21: 00 Lorazepam (Ativan) 2 mg Q10MIN PRN IV seizure; Start 06/16/17 at 11:30 Metoprolol Tartrate (Lopressor) 25 mg Q12 NGT Last administered on 06/18/17 09:34; Admin Dose 25 MG; Start 06/16/17 at 21:00 Enoxaparin Sodium 40 mg 40 mg DAILY SC Last administered on 06/18/17 09:37; Admin Dose 40 MG; Start 06/17/17 at 09:30 Dexmedetomidine HCl 200 mcg/ Sodium Chloride 50 ml @ 7.15 mls/hr TITRATE IV Last administered on 06/17/17 10:29; Admin Dose 7.15 MLS/HR; Start 06/17/17 at 10:00 Fentanyl 1000 mcg/ Dextrose 100 ml @ 2.5 mls/hr TITRATE IV Last administered on 06/17/17 10:37; Admin Dose 2.5 MLS/HR; Start 06/17/17 at 10:00 Cefepime HCl (Maxipime 1gm/50 ml (Pmx)) 50 ml @ 100 mls/hr Q12 IVPB Last administered on 06/18/17 09:34; Admin Dose 100 MLS/HR; Start 06/17/17 at 12: 00 Pantoprazole 40 mg 40 mg DAILY@06 PO Last administered on 06/18/17 05:36; Admin Dose 40 MG; Start 06/18/17 at 06:00 Sodium Chloride (NS) 1,000 ml @ 100 mls/hr Q10H IV ; Start 06/18/17 at 12:08; Status UNJERILYN KAUFFMAN MD Jun 18, 2017 12:12
--- NOTE | 2017-06-18 14:00 | RADRPT ---
Echocardiogram Report Patient Name: SILVER HOLLOWAY Gender: Male Date: 1970 Study Date: 17-Jun-2017 Mobile Phone Salesperson: Roro Miller RDCS Location: 103 Ref. Physician: KEVIN CASTANO Quality: Adequate Procedures: Transthoracic echocardiogram with complete 2D, M-Mode, and doppler examination. Indications: Atrial Fibrillation with RVR. 2D/M Mode Doppler Measurement Value Normal Ranges Measurement Value Normal Ranges LVIDd 2D 5.0 3.5 - 5.6 cm AV Peak Cameron 1.3 m/sec LVIDs 2D 2.8 2.1 - 4.1 cm AV Peak PG 6.9 mmHg LVPWd 2D 1.0 0.6 - 1.1 cm LVOT Peak Cameron 1.3 m/sec IVSd 2D 1.0 0.6 - 1.1 cm LVOT Peak PG 6.9 mmHg AoR Diam 2D 3.3 2.0 - 3.7 cm MV E Peak Cameron 0.8 m/sec EDV 2D 118.0 cm3 MV A Peak Cameron 0.8 m/sec ESV 2D 21.4 cm3 MV E/A 0.9 LA Dimen 2D 3.8 2.3 - 4.0 cm MV Decel Time 185 msec MV Decel [place] 4 MV E/A 0.9 TR Peak Cameron 1.5 m/sec TR Peak PG 9.5 mmHg RVSP 25.0 mmHg Findings Left Ventricle: Normal left ventricular systolic function. Normal left ventricular cavity size. Normal left ventricular wall thickness. Ejection fraction is visually estimated at 5560 %. Tissue Doppler/Mitral Doppler indices are consistent with impaired relaxation (Stage I diastolic dysfunction). Right Ventricle: Normal right ventricular size. Normal right ventricular systolic function. Left Atrium: The left atrium is normal in size. Right Atrium: The right atrium is normal in size. Mitral Valve: Normal appearance of the mitral valve. Mild mitral annular calcification. Trace mitral regurgitation. Aortic Valve: Normal appearance of the aortic valve. No significant aortic stenosis or insufficiency. Tricuspid Valve: Normal appearance of the tricuspid valve. Estimated peak PA systolic pressure 25 mmHg. There is trace tricuspid regurgitation. Pulmonic Valve: Normal pulmonic valve appearance. Pericardium: Normal pericardium with no significant pericardial effusion. Aorta: Normal aortic root. IVC: Dilated IVC without respiratory collapse, however, patient on ventilator. Conclusions 1.The left ventricle is normal in size and systolic function. 2.Estimated left ventricular ejection fraction of 55-60%. 3.Grade 1 diastolic dysfunction. Electronically Signed By: Madi Grace 18-Jun-2017 13:58:58 -0700 Patient Name: SILVER HOLLOWAY Study Date: 17-Jun-[id number]
--- NOTE | 2017-06-18 14:00 | RADRPT ---
Echocardiogram Report Patient Name: SILVER HOLLOWAY Gender: Male Date: 1970 Study Date: 17-Jun-2017 Manager Merchandise: Roro Miller RDCS Location: 103 Ref. Physician: KEVIN CASTANO Quality: Adequate Procedures: Transthoracic echocardiogram with complete 2D, M-Mode, and doppler examination. Indications: Atrial Fibrillation with RVR. 2D/M Mode Doppler Measurement Value Normal Ranges Measurement Value Normal Ranges LVIDd 2D 5.0 3.5 - 5.6 cm AV Peak Cameron 1.3 m/sec LVIDs 2D 2.8 2.1 - 4.1 cm AV Peak PG 6.9 mmHg LVPWd 2D 1.0 0.6 - 1.1 cm LVOT Peak Cameron 1.3 m/sec IVSd 2D 1.0 0.6 - 1.1 cm LVOT Peak PG 6.9 mmHg AoR Diam 2D 3.3 2.0 - 3.7 cm MV E Peak Cameron 0.8 m/sec EDV 2D 118.0 cm3 MV A Peak Cameron 0.8 m/sec ESV 2D 21.4 cm3 MV E/A 0.9 LA Dimen 2D 3.8 2.3 - 4.0 cm MV Decel Time 185 msec MV Decel [place] 4 MV E/A 0.9 TR Peak Cameron 1.5 m/sec TR Peak PG 9.5 mmHg RVSP 25.0 mmHg Findings Left Ventricle: Normal left ventricular systolic function. Normal left ventricular cavity size. Normal left ventricular wall thickness. Ejection fraction is visually estimated at 5560 %. Tissue Doppler/Mitral Doppler indices are consistent with impaired relaxation (Stage I diastolic dysfunction). Right Ventricle: Normal right ventricular size. Normal right ventricular systolic function. Left Atrium: The left atrium is normal in size. Right Atrium: The right atrium is normal in size. Mitral Valve: Normal appearance of the mitral valve. Mild mitral annular calcification. Trace mitral regurgitation. Aortic Valve: Normal appearance of the aortic valve. No significant aortic stenosis or insufficiency. Tricuspid Valve: Normal appearance of the tricuspid valve. Estimated peak PA systolic pressure 25 mmHg. There is trace tricuspid regurgitation. Pulmonic Valve: Normal pulmonic valve appearance. Pericardium: Normal pericardium with no significant pericardial effusion. Aorta: Normal aortic root. IVC: Dilated IVC without respiratory collapse, however, patient on ventilator. Conclusions 1.The left ventricle is normal in size and systolic function. 2.Estimated left ventricular ejection fraction of 55-60%. 3.Grade 1 diastolic dysfunction. Electronically Signed By: Madi Grace 18-Jun-2017 13:58:58 -0700 Patient Name: SILVER HOLLOWAY Study Date: 17-Jun-[id number]
--- NOTE | 2017-06-18 14:56 | RADRPT ---
Vent Rate: 81 bpm RR Interval: 0 msec CO Interval: 140 msec QRS Duration: 94 msec QT Interval: 370 msec QTC Interval: 429 msec P-R-T [place]: 42 - 46 - 39 degrees Normal sinus rhythm Normal ECG Electronically Signed By: Madi Grace [id number]
--- NOTE | 2017-06-18 14:56 | RADRPT ---
Vent Rate: 81 bpm RR Interval: 0 msec AL Interval: 140 msec QRS Duration: 94 msec QT Interval: 370 msec QTC Interval: 429 msec P-R-T [place]: 42 - 46 - 39 degrees Normal sinus rhythm Normal ECG Electronically Signed By: Madi Grace [id number]
--- NOTE | 2017-06-18 14:56 | RADRPT ---
Vent Rate: 81 bpm RR Interval: 0 msec NV Interval: 140 msec QRS Duration: 94 msec QT Interval: 370 msec QTC Interval: 429 msec P-R-T [place]: 42 - 46 - 39 degrees Normal sinus rhythm Normal ECG Electronically Signed By: Madi Grace [id number]
--- NOTE | 2017-06-18 15:02 | SP ---
DATE OF PROCEDURE: 06/17/2017 HISTORY: This is a 46-year-old male who was admitted with possible syncope. EEG is to rule out sei zure activity. CURRENT MEDICATIONS: Keppra. PROCEDURE: Utilizing a 16-channel EEG machine, cap scalp electrodes were applied in accordance with International 10-20 system. Vmoxm-[id number] and ohiru-ib-ebx montages were displayed. Electrical i mpedances were measured and reported. DESCRIPTION: During the resting state, posterior dominant rhythm of about 8-9 Hz were seen bihemisp herically. Photic stimulation had a good response. Hyperventilation was not performed. There was no focal lateralizing or epileptiform discharge identified. INTERPRETATION: This is a normal EEG. A normal EEG does not exclude seizure disorder. Please layla elate clinically. Dictated By: SAIGE ANTONIO/LIYAH Conf#: [id number] DID#: [id number]
--- NOTE | 2017-06-18 15:02 | SP ---
DATE OF PROCEDURE: 06/17/2017 HISTORY: This is a 46-year-old male who was admitted with possible syncope. EEG is to rule out sei zure activity. CURRENT MEDICATIONS: Keppra. PROCEDURE: Utilizing a 16-channel EEG machine, cap scalp electrodes were applied in accordance with International 10-20 system. Fizug-el-qhkah and gtxwz-en-[id number] montages were displayed. Electrical i mpedances were measured and reported. DESCRIPTION: During the resting state, posterior dominant rhythm of about 8-9 Hz were seen bihemisp herically. Photic stimulation had a good response. Hyperventilation was not performed. There was no focal lateralizing or epileptiform discharge identified. INTERPRETATION: This is a normal EEG. A normal EEG does not exclude seizure disorder. Please layla elate clinically. Dictated By: SAIGE ANTONIO/LIYAH Conf#: [id number] DID#: [id number]
--- NOTE | 2017-06-18 15:02 | SP ---
DATE OF PROCEDURE: 06/17/2017 HISTORY: This is a 46-year-old male who was admitted with possible syncope. EEG is to rule out sei zure activity. CURRENT MEDICATIONS: Keppra. PROCEDURE: Utilizing a 16-channel EEG machine, cap scalp electrodes were applied in accordance with International 10-20 system. Pekug-mu-amxhm and ertnx-nn-qot montages were displayed. Electrical i mpedances were measured and reported. DESCRIPTION: During the resting state, posterior dominant rhythm of about 8-9 Hz were seen bihemisp herically. Photic stimulation had a good response. Hyperventilation was not performed. There was no focal lateralizing or epileptiform discharge identified. INTERPRETATION: This is a normal EEG. A normal EEG does not exclude seizure disorder. Please layla elate clinically. Dictated By: SAIGE ANTONIO/LIYAH Conf#: [id number] DID#: [id number]
--- NOTE | 2017-06-18 16:22 | CONS ---
Date/Time of Note Date/Time of Note DATE: 06/18/17 TIME: 16:19 Assessment/Plan Assessment/Plan Chief Complaint/Hosp Course Assessment: Syncope vs seizure Paroxysmal atrial fibrillation with rapid ventricular response - now back in sinus rhythm Acute encephalopathy - drug-induced vs seizures, mental status slowly improving Acute hypoxic respiratory failure - improved and extubated Leukocytosis and lactic acidosis - rule out infection Incomplete data Recommendations -continue metoprolol 25mg BID -echocardiogram showed normal LVEF 55-60% Problems: Consultation Date/Type/Reason Admit Date/Time Jun 16, 2017 at 03:13 Initial Consult Date 06/16/17 Type of Consultation: Cardiology 24 HR Interval Summary Free Text/Dictation Patient has been extubated and transferred out of ICU. Lethargic. Detailed Summary Additional Comments Unable to obtain review of systems due to patient's mental status. Exam/Review of Systems Vital Signs Vitals Vital Signs Date Time Temp Pulse Resp B/P Pulse Ox O2 Delivery O2 Flow Rate FiO2 06/18/17 14:45 Nasal Cannula 3.0 06/18/17 14:20 99.3 88 16 111/68 95 06/17/17 10:30 60 Intake and Output 06/17/17 06/17/17 06/18/17 15:00 23:00 07:00 Intake Total 1433.28 ml 1560 ml 1320 ml Output Total 700 ml 1050 ml 900 ml Balance 733.28 ml 510 ml 420 ml Exam Constitutional: obese, No alert, No distress Psych: No nl mood/affect, No no complaints Head: atraumatic, normocephalic Eyes: nl conjunctiva, nl lids ENMT: intubated Neck: supple, No jvd Respiratory: clear to auscultation, No wheezing Cardiovascular: regular rate and rhythm, No murmurs/extra sounds Gastrointestinal: non-tender, soft Musculoskeletal: nl extremities to inspection Extremities: No clubbing, No cyanosis, No edema Neurological: No nl mental status, No nl speech Skin: nl turgor Results Result Diagram: 06/17/17 0448 06/17/17 0448 Results 24 hrs Laboratory Tests Test 06/17/17 17:08 06/18/17 00:23 06/18/17 02:32 06/18/17 05:38 Bedside Glucose 119 126 112 110 Test 06/18/17 12:24 06/18/17 13:10 Creatine Kinase 1349 H Bedside Glucose 126 Medications Medications Current Medications Ondansetron HCl (Zofran Inj) 4 mg Q6H PRN IV NAUSEA AND/OR VOMITING; Start at 06:00 Acetaminophen (Tylenol Supp) 650 mg Q4H PRN [place] PAIN LEVEL 1-3 OR FEVER; Start 06/16/17 at 06:00 Morphine Sulfate (morphine) 2 mg Q4H PRN IV PAIN LEVEL 7-10; Start 06/16/17 at 06:00 Lorazepam (Ativan) 1 mg Q2H PRN IV ANXIETY; Start 06/16/17 at 06:00 Aspirin (Halfprin) 81 mg DAILY PO Last administered on 06/18/17 09:35; Admin Dose 81 MG; Start 06/16/17 at 09:00 Diagnostic Test (Pha) (Accu-Chek) 1 ea 02 XX Last administered on 06/18/17 02 :33; Admin Dose 1 EA; Start 06/17/17 at 02:00 Insulin Aspart (Novolog Insulin Pen) NOVOLOG *MODERATE* ALGORITHM Q6 SC ; Start 06/16/17 at 12:00 Miscellaneous Information 1 ea NOTE XX ; Start 06/16/17 at 10:00 Glucose (Glutose) 15 gm Q15M PRN PO DECREASED GLUCOSE; Start 06/16/17 at 10:00 Glucose (Glutose) 22.5 gm Q15M PRN PO DECREASED GLUCOSE; Start 06/16/17 at 10: 00 Dextrose (D50w Syringe) 25 ml Q15M PRN IV DECREASED GLUCOSE; Start 06/16/17 at 10:00 Dextrose (D50w Syringe) 50 ml Q15M PRN IV DECREASED GLUCOSE; Start 06/16/17 at 10:00 Glucagon (Glucagen) 1 mg Q15M PRN IM DECREASED GLUCOSE; Start 06/16/17 at 10: 00 Glucose 15 gm 15 gm Q15M PRN BUCCAL DECREASED GLUCOSE; Start 06/16/17 at 10:00 Levetiracetam (Keppra 1,000mg/ 100ml (Pmx)) 100 ml @ 400 mls/hr Q12 IVPB Last administered on 06/18/17 09:34; Admin Dose 400 MLS/HR; Start 06/16/17 at 21: 00 Lorazepam (Ativan) 2 mg Q10MIN PRN IV seizure; Start 06/16/17 at 11:30 Metoprolol Tartrate (Lopressor) 25 mg Q12 NGT Last administered on 06/18/17 09:34; Admin Dose 25 MG; Start 06/16/17 at 21:00 Enoxaparin Sodium 40 mg 40 mg DAILY SC Last administered on 06/18/17 09:37; Admin Dose 40 MG; Start 06/17/17 at 09:30 Cefepime HCl (Maxipime 1gm/50 ml (Pmx)) 50 ml @ 100 mls/hr Q12 IVPB Last administered on 06/18/17 09:34; Admin Dose 100 MLS/HR; Start 06/17/17 at 12: 00 Pantoprazole 40 mg 40 mg DAILY@06 PO Last administered on 06/18/17 05:36; Admin Dose 40 MG; Start 06/18/17 at 06:00 Sodium Chloride (NS) 1,000 ml @ 100 mls/hr Q10H IV Last administered on 15:41; Admin Dose 100 MLS/HR; Start 06/18/17 at 12:08 ELLEN AGUILERA MD Jun 18, 2017 16:22
[2017-06-19 01:34] VITALS: BP 145/87; RESP 18
[2017-06-19] MEDS: ACCU-CHEK XX SCH ×2 (02:00→22:50)
[2017-06-19] MEDS: PANTOPRAZOLE (EC) 40 MG TAB PO SCH (05:17)
[2017-06-19] MEDS: INSULIN ASPART [NOVOLOG] 3 ML PEN SC SCH ×4 (07:20→20:06)
[2017-06-19 07:42] VITALS: BP 133/73; RESP 18
[2017-06-19] MEDS: SOD CHLORIDE 0.9% 1,000 ML IV SCH ×3 (08:08→22:51)
[2017-06-19] MEDS: METOPROLOL 25 MG TAB NGT SCH ×2 (08:35→20:26)
[2017-06-19] MEDS: ASPIRIN (EC) 81 MG TAB PO SCH (08:35)
[2017-06-19] MEDS: ENOXAPARIN 40 MG/0.4 ML SYG SC SCH (08:37)
[2017-06-19] MEDS: LEVETIRACETAM 1000 MG (PMX) 100 ML IVPB SCH ×2 (09:53→20:26)
[2017-06-19] MEDS: CEFEPIME 1GM/50 ML (PMX) 50 ML IVPB SCH ×2 (10:28→20:26)
--- NOTE | 2017-06-19 11:23 | CONS ---
Date/Time of Note Date/Time of Note DATE: 06/19/17 TIME: 11:19 Assessment/Plan Assessment/Plan Additional Assessment/Plan Assessment and recommendations; 1. Patient admitted with syncopal episode resulting in respiratory failure patient now extubated day before yesterday with excellent overall clinical status. 2. History of drug use, but the patient is denying any recent drug use. Patient can be discharged home. Consultation Date/Type/Reason Admit Date/Time Jun 16, 2017 at 03:13 Initial Consult Date 06/16/17 Type of Consultation: Pulmonary 24 HR Interval Summary Free Text/Dictation Patient's condition is stable. He has been transferred to medical floor. Patient denies any shortness of breath, coughing, fever, abdominal pain, nausea or vomiting. Wants to be discharged home. General exam; middle-aged male, awake and alert. Currently in no distress. Exam/Review of Systems Vital Signs Vitals Vital Signs Date Time Temp Pulse Resp B/P Pulse Ox O2 Delivery O2 Flow Rate FiO2 06/19/17 08:00 Nasal Cannula 3.0 06/19/17 07:42 98.0 75 18 133/73 97 06/17/17 10:30 60 Intake and Output 06/18/17 06/18/17 06/19/17 15:00 23:00 07:00 Intake Total 200 ml 765 ml 1000 ml Output Total 480 ml 500 ml 1800 ml Balance -280 ml 265 ml -800 ml Exam HEENT exam; supple neck, no JVD. No lymphadenopathy. Midline trachea. No thyromegaly. Patient has fair dentition. Chest exam; clear to auscultation. S1-S2 audible, no murmurs. Regular rhythm. Abdomen exam; soft, protuberant. Nontender. No organomegaly. Bowel sounds audible. Extremity exam; no peripheral edema. 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 Results Result Diagram: 06/19/17 0511 06/19/17 0511 Results 24 hrs Laboratory Tests Test 06/18/17 12:24 06/18/17 13:10 06/18/17 17:45 06/18/17 20:09 Creatine Kinase 1349 H Bedside Glucose 126 113 89 Test 06/19/17 05:11 06/19/17 08:32 White Blood Count 8.0 Red Blood Count 4.28 L Hemoglobin 12.9 L Hematocrit 39.1 L Mean Corpuscular Volume 91.4 Mean Corpuscular Hemoglobin 30.1 Mean Corpuscular Hemoglobin Concent 33.0 Red Cell Distribution Width 12.9 Platelet Count 207 Mean Platelet Volume 9.8 Neutrophils % 63.7 Lymphocytes % 21.5 Monocytes % 10.8 Eosinophils % 3.0 Basophils % 0.6 Nucleated Red Blood Cells % 0.0 Neutrophils # 5.1 Lymphocytes # 1.7 Monocytes # 0.9 Eosinophils # 0.2 Basophils # 0.1 Nucleated Red Blood Cells # 0.0 Sodium Level 142 Potassium Level 3.9 Chloride Level 101 Carbon Dioxide Level 32 H Anion Gap 13 Blood Urea Nitrogen 10 Creatinine 0.69 Glucose Level 133 Calcium Level 8.6 Phosphorus Level 3.2 Magnesium Level 1.7 Albumin 3.5 Bedside Glucose 102 Medications Medications Current Medications Ondansetron HCl (Zofran Inj) 4 mg Q6H PRN IV NAUSEA AND/OR VOMITING; Start at 06:00 Acetaminophen (Tylenol Supp) 650 mg Q4H PRN [place] PAIN LEVEL 1-3 OR FEVER; Start 06/16/17 at 06:00 Morphine Sulfate (morphine) 2 mg Q4H PRN IV PAIN LEVEL 7-10; Start 06/16/17 at 06:00 Lorazepam (Ativan) 1 mg Q2H PRN IV ANXIETY; Start 06/16/17 at 06:00 Aspirin (Halfprin) 81 mg DAILY PO Last administered on 06/19/17 08:35; Admin Dose 81 MG; Start 06/16/17 at 09:00 Diagnostic Test (Pha) (Accu-Chek) 1 ea 02 XX Last administered on 06/18/17 02 :33; Admin Dose 1 EA; Start 06/17/17 at 02:00 Miscellaneous Information 1 ea NOTE XX ; Start 06/16/17 at 10:00 Glucose (Glutose) 15 gm Q15M PRN PO DECREASED GLUCOSE; Start 06/16/17 at 10:00 Glucose (Glutose) 22.5 gm Q15M PRN PO DECREASED GLUCOSE; Start 06/16/17 at 10: 00 Dextrose (D50w Syringe) 25 ml Q15M PRN IV DECREASED GLUCOSE; Start 06/16/17 at 10:00 Dextrose (D50w Syringe) 50 ml Q15M PRN IV DECREASED GLUCOSE; Start 06/16/17 at 10:00 Glucagon (Glucagen) 1 mg Q15M PRN IM DECREASED GLUCOSE; Start 06/16/17 at 10: 00 Glucose 15 gm 15 gm Q15M PRN BUCCAL DECREASED GLUCOSE; Start 06/16/17 at 10:00 Levetiracetam (Keppra 1,000mg/ 100ml (Pmx)) 100 ml @ 400 mls/hr Q12 IVPB Last administered on 06/19/17 09:53; Admin Dose 400 MLS/HR; Start 06/16/17 at 21:00 Lorazepam (Ativan) 2 mg Q10MIN PRN IV seizure; Start 06/16/17 at 11:30 Metoprolol Tartrate (Lopressor) 25 mg Q12 NGT Last administered on 06/19/17 08 :35; Admin Dose 25 MG; Start 06/16/17 at 21:00 Enoxaparin Sodium 40 mg 40 mg DAILY SC Last administered on 06/19/17 08:37; Admin Dose 40 MG; Start 06/17/17 at 09:30 Cefepime HCl (Maxipime 1gm/50 ml (Pmx)) 50 ml @ 100 mls/hr Q12 IVPB Last administered on 06/19/17 10:28; Admin Dose 100 MLS/HR; Start 06/17/17 at 12:00 Pantoprazole 40 mg 40 mg DAILY@06 PO Last administered on 06/19/17 05:17; Admin Dose 40 MG; Start 06/18/17 at 06:00 Sodium Chloride (NS) 1,000 ml @ 100 mls/hr Q10H IV Last administered on 09:57; Admin Dose 100 MLS/HR; Start 06/18/17 at 12:08 LIANG HEMPHILL Jun 19, 2017 11:23
[2017-06-19] MEDS ORDERED: METO-448 NGT (13:41)
[2017-06-19] MEDS ORDERED: ASPI-664 PO (13:41)
--- NOTE | 2017-06-19 14:09 | DS ---
Date/Time of Note Date/Time of Note DATE: 06/19/17 TIME: 13:43 Discharge Summary Admission/Discharge Info Admit Date/Time Jun 16, 2017 at 03:13 Discharge Date/Time Discharge Diagnosis 1. Syncope, orthostatic, modify life style 2. Hypertension, controlled 3. DM with HbA1c 6.9, diet control, follow up with PCP 4. s/p atrial fibrillation, sinus now, on aspirin 5. Mild rhabdomyolysis, fall related, stable 6. Acute kidney injury, vasomotor, resolved Hospital Course 46 years old male, obese with HTN that he is not taking medication, sleep apnea that he has not had sleep study was on the toilet then stood up with dizziness, then fell down and lost consciousness on the day of admission. He had exactly same episode about two week prior to that event. No witness on either event. He went to bathroom in ER there he was found of unresponsive on ground. He was helped back to the bed and he was given ativan 1 mg iv for anxiety. While awaiting for transfer to floor, he was found standing up smoking in his hospital room. He was helped back into bed when she was resisting in four- point restraints were going to be put on him however he became unresponsive, stiff and went into A. fib with RVR. He vomited and did not seem to be protecting his airway. He was intubated. No jerking movement. For loss of consciousness, it is most likely syncope from orthostatic or vasovagal reaction. CT head, carotid ultrasound, echocardiography, and EEG are unremarkable. Seizure is unlikely at this point. He is instructed to be cautious on position change. Patient had atrial fibrillation that converted to sinus rhythm spontaneously. Echocardiography is unremarkable. Director Of Community Education recommends metoprolol and aspirin. Patient has hypertension that has been controlled with metoprolol. Patient likely has sleep apnea clinically, he is instructed to have his PCP to send him for sleep study outpatient. HbA1c is 6.9 but his blood glucose has been around 100. Patient is instructed to watch his diet and follow up with PCP. Home Meds Active Scripts Aspirin* (Aspirin* EC) 81 Mg Tablet., 81 MG PO DAILY for 30 Days Prov:TATO FIELDS MD 06/19/17 Metoprolol Tartrate* (Lopressor*) 25 Mg Tab, 25 MG NGT Q12 for 30 Days, TAB Prov:TATO FIELDS MD 06/19/17 Follow-up Plan PCP in one week Primary Care Provider Care Physician No Primary Pending Labs Laboratory Tests Test 06/18/17 17:45 06/18/17 20:09 06/19/17 05:11 06/19/17 08:32 Bedside Glucose 113mg/dL (70-220) 89mg/dL (70-220) 102mg/dL (70-220) White Blood Count 8.010^3/ul (4.8-10.8) Red Blood Count 4.2810^6/ul (4.70-6.10) Hemoglobin 12.9g/dl (14.0-18.0) Hematocrit 39.1% (42.0-52.0) Mean Corpuscular Volume 91.4fl (82.0-101.0) Mean Corpuscular Hemoglobin 30.1pg (29.0-33.0) Mean Corpuscular Hemoglobin Concent 33.0g/dl (32.0-37.0) Red Cell Distribution Width 12.9% (11.5-14.5) Platelet Count 38546^3/UL (140-415) Mean Platelet Volume 9.8fl (7.4-10.4) Neutrophils % 63.7% (39.0-77.0) Lymphocytes % 21.5% (15.0-51.0) Monocytes % 10.8% (0.0-11.0) Eosinophils % 3.0% (0.0-7.0) Basophils % 0.6% (0.0-2.0) Nucleated Red Blood Cells % 0.0/100WBC (0.0-0.0) Neutrophils # 5.110^3/ul (1.6-7.5) Lymphocytes # 1.710^3/ul (0.8-2.9) Monocytes # 0.910^3/ul (0.3-0.9) Eosinophils # 0.210^3/ul (0.0-0.5) Basophils # 0.110^3/ul (0.0-0.1) Nucleated Red Blood Cells # 0.010^3/ul (0.0-0.0) Sodium Level 142mmol/L (135-144) Potassium Level 3.9mmol/L (3.5-5.1) Chloride Level 101mmol/L (97-110) Carbon Dioxide Level 32mmol/L (21-31) Anion Gap 13 (8-16) Blood Urea Nitrogen 10mg/dl (7-20) Creatinine 0.69mg/dl (0.61-1.24) Glucose Level 133mg/dl (70-220) Calcium Level 8.6mg/dl (8.4-10.2) Phosphorus Level 3.2mg/dl (2.5-4.9) Magnesium Level 1.7mg/dl (1.7-2.5) Albumin 3.5g/dl (3.3-4.9) Test 06/19/17 12:20 Bedside Glucose 130mg/dL (70-220) TATO FIELDS MD Jun 19, 2017 13:53
[2017-06-19 15:00] VITALS: BP 157/102; RESP 18
--- NOTE | 2017-06-19 19:52 | CONS ---
Date/Time of Note Date/Time of Note DATE: 06/19/17 TIME: 19:50 Assessment/Plan Assessment/Plan Chief Complaint/Hosp Course Assessment: Paroxysmal atrial fibrillation with rapid ventricular response - now back in sinus rhythm Acute encephalopathy - unclear etiology, ? drug-induced vs seizures, mental status now improved Acute hypoxic respiratory failure - improved and extubated Leukocytosis and lactic acidosis - ruled out for infection, resolved Recommendations -continue metoprolol 25mg BID -echocardiogram showed normal LVEF 55-60% Problems: Consultation Date/Type/Reason Admit Date/Time Jun 16, 2017 at 03:13 Initial Consult Date 06/16/17 Type of Consultation: Cardiology 24 HR Interval Summary Free Text/Dictation Reported to be lethargic earlier today, tough mental status now appears improved. No specific complaints. Detailed Summary Additional Comments 14 point review of systems without changes. Exam/Review of Systems Vital Signs Vitals Vital Signs Date Time Temp Pulse Resp B/P Pulse Ox O2 Delivery O2 Flow Rate FiO2 06/19/17 15:00 98.0 68 18 157/102 96 06/19/17 08:00 Nasal Cannula 3.0 06/17/17 10:30 60 Intake and Output 06/18/17 06/18/17 06/19/17 15:00 23:00 07:00 Intake Total 200 ml 765 ml 1000 ml Output Total 480 ml 500 ml 1800 ml Balance -280 ml 265 ml -800 ml Exam Constitutional: obese, alert, no distress Psych: No no complaints Head: atraumatic, normocephalic Eyes: nl conjunctiva, nl lids Neck: supple, No jvd Respiratory: clear to auscultation, No wheezing Cardiovascular: regular rate and rhythm, No murmurs/extra sounds Gastrointestinal: non-tender, soft Musculoskeletal: nl extremities to inspection Extremities: No clubbing, No cyanosis, No edema Neurological: Nl mental status, Nl speech Skin: nl turgor Results Result Diagram: 06/19/1751006/19/17510 Results 24 hrs Laboratory Tests Test 06/18/17 20:09 06/19/17 05:11 06/19/17 08:32 06/19/17 12:20 Bedside Glucose 89 102 130 White Blood Count 8.0 Red Blood Count 4.28 L Hemoglobin 12.9 L Hematocrit 39.1 L Mean Corpuscular Volume 91.4 Mean Corpuscular Hemoglobin 30.1 Mean Corpuscular Hemoglobin Concent 33.0 Red Cell Distribution Width 12.9 Platelet Count 207 Mean Platelet Volume 9.8 Neutrophils % 63.7 Lymphocytes % 21.5 Monocytes % 10.8 Eosinophils % 3.0 Basophils % 0.6 Nucleated Red Blood Cells % 0.0 Neutrophils # 5.1 Lymphocytes # 1.7 Monocytes # 0.9 Eosinophils # 0.2 Basophils # 0.1 Nucleated Red Blood Cells # 0.0 Sodium Level 142 Potassium Level 3.9 Chloride Level 101 Carbon Dioxide Level 32 H Anion Gap 13 Blood Urea Nitrogen 10 Creatinine 0.69 Glucose Level 133 Calcium Level 8.6 Phosphorus Level 3.2 Magnesium Level 1.7 Albumin 3.5 Test 06/19/17 17:49 Bedside Glucose 95 Medications Medications Current Medications Ondansetron HCl (Zofran Inj) 4 mg Q6H PRN IV NAUSEA AND/OR VOMITING; Start at 06:00 Acetaminophen (Tylenol Supp) 650 mg Q4H PRN [place] PAIN LEVEL 1-3 OR FEVER; Start 06/16/17 at 06:00 Morphine Sulfate (morphine) 2 mg Q4H PRN IV PAIN LEVEL 7-10; Start 06/16/17 at 06:00 Lorazepam (Ativan) 1 mg Q2H PRN IV ANXIETY; Start 06/16/17 at 06:00 Aspirin (Halfprin) 81 mg DAILY PO Last administered on 06/19/17 08:35; Admin Dose 81 MG; Start 06/16/17 at 09:00 Diagnostic Test (Pha) (Accu-Chek) 1 ea 02 XX Last administered on 06/18/17 02 :33; Admin Dose 1 EA; Start 06/17/17 at 02:00 Miscellaneous Information 1 ea NOTE XX ; Start 06/16/17 at 10:00 Glucose (Glutose) 15 gm Q15M PRN PO DECREASED GLUCOSE; Start 06/16/17 at 10:00 Glucose (Glutose) 22.5 gm Q15M PRN PO DECREASED GLUCOSE; Start 06/16/17 at 10: 00 Dextrose (D50w Syringe) 25 ml Q15M PRN IV DECREASED GLUCOSE; Start 06/16/17 at 10:00 Dextrose (D50w Syringe) 50 ml Q15M PRN IV DECREASED GLUCOSE; Start 06/16/17 at 10:00 Glucagon (Glucagen) 1 mg Q15M PRN IM DECREASED GLUCOSE; Start 06/16/17 at 10: 00 Glucose 15 gm 15 gm Q15M PRN BUCCAL DECREASED GLUCOSE; Start 06/16/17 at 10:00 Levetiracetam (Keppra 1,000mg/ 100ml (Pmx)) 100 ml @ 400 mls/hr Q12 IVPB Last administered on 06/19/17 09:53; Admin Dose 400 MLS/HR; Start 06/16/17 at 21:00 Lorazepam (Ativan) 2 mg Q10MIN PRN IV seizure; Start 06/16/17 at 11:30 Metoprolol Tartrate (Lopressor) 25 mg Q12 NGT Last administered on 06/19/17 08 :35; Admin Dose 25 MG; Start 06/16/17 at 21:00 Enoxaparin Sodium 40 mg 40 mg DAILY SC Last administered on 06/19/17 08:37; Admin Dose 40 MG; Start 06/17/17 at 09:30 Cefepime HCl (Maxipime 1gm/50 ml (Pmx)) 50 ml @ 100 mls/hr Q12 IVPB Last administered on 06/19/17 10:28; Admin Dose 100 MLS/HR; Start 06/17/17 at 12:00 Pantoprazole 40 mg 40 mg DAILY@06 PO Last administered on 06/19/17 05:17; Admin Dose 40 MG; Start 06/18/17 at 06:00 Sodium Chloride (NS) 1,000 ml @ 100 mls/hr Q10H IV Last administered on 09:57; Admin Dose 100 MLS/HR; Start 06/18/17 at 12:08 ELLEN AGUILERA MD Jun 19, 2017 19:52
[2017-06-19 20:03] VITALS: BP 123/78; RESP 20
[2017-06-20 03:08] VITALS: BP 128/75; RESP 21
[2017-06-20] MEDS: PANTOPRAZOLE (EC) 40 MG TAB PO SCH (05:20)
[2017-06-20 08:01] VITALS: BP 130/59; RESP 20
[2017-06-20] MEDS: ASPIRIN (EC) 81 MG TAB PO SCH (08:25)
[2017-06-20] MEDS: CEFEPIME 1GM/50 ML (PMX) 50 ML IVPB SCH ×2 (08:25→21:32)
[2017-06-20] MEDS: METOPROLOL 25 MG TAB NGT SCH ×2 (08:26→20:27)
[2017-06-20] MEDS: INSULIN ASPART [NOVOLOG] 3 ML PEN SC SCH ×4 (08:27→20:33)
[2017-06-20] MEDS: ENOXAPARIN 40 MG/0.4 ML SYG SC SCH (08:34)
[2017-06-20] MEDS: LEVETIRACETAM 1000 MG (PMX) 100 ML IVPB SCH ×2 (10:15→20:26)
[2017-06-20 13:11] VITALS: BP 126/85; RESP 18
[2017-06-20] MEDS: SOD CHLORIDE 0.9% 1,000 ML IV SCH (14:08)
--- NOTE | 2017-06-20 17:21 | PN ---
Date/Time of Note Date/Time of Note DATE: 06/20/17 TIME: 17:19 Assessment/Plan VTE Prophylaxis VTE Prophylaxis Intervention: SCD's Lines/Catheters IV Catheter Type (from Nrs): Saline Lock Urinary Cath still in place: No Assessment/Plan Assessment/Plan 1. Acute encephalopathy, drug-induced, questionable spice vs seizure- improving 2.? aspiration PNA 3. Atrial fibrillation with RVR, unknown if first event - Cardiology on board and recommendations appreciated. back in sinus rhythm and currently on BB - rate controlled - ECHO showed grade 1 diastolic dysfunction with EF 55% 4. SHANE 2/2 Prerenal azotemia 5. Diabetes Mellitus 6. Rhabdo on IVF 7. Disposition - if stable possible d/c plan tomorrow Subjective 24 Hr Interval Summary Free Text/Dictation doing ok, c/o dizziness, pt becomes more negative, Exam/Review of Systems Vital Signs Vitals Vital Signs Date Time Temp Pulse Resp B/P Pulse Ox O2 Delivery O2 Flow Rate FiO2 06/20/17 13:11 97.9 73 18 126/85 92 06/20/17 03:50 3.0 06/19/17 08:00 Nasal Cannula 06/17/17 10:30 60 Intake and Output 06/19/17 06/19/17 06/20/17 15:00 23:00 07:00 Intake Total 950 ml 1310 ml 940 ml Output Total 2200 ml 1100 ml Balance 950 ml -890 ml -160 ml Exam Constitutional: alert Psych: no complaints Head: normocephalic ENMT: nl external ears & nose Neck: non-tender, supple Respiratory: clear to auscultation, normal air movement Cardiovascular: nl pulses, regular rate and rhythm Gastrointestinal: non-tender, soft Musculoskeletal: muscle weakness, nl extremities to inspection, nl gait and stance Extremities: normal pulses 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, nl mental status, nl speech, nl strength Lymph: nl lymph nodes Results Result Diagram: 06/20/17 0454 06/20/17 0455 Results 24 hrs Laboratory Tests Test 06/19/17 17:49 06/19/17 20:03 06/20/17 02:16 06/20/17 04:54 Bedside Glucose 95 106 103 White Blood Count 8.3 Red Blood Count 4.20 L Hemoglobin 12.5 L Hematocrit 38.2 L Mean Corpuscular Volume 91.0 Mean Corpuscular Hemoglobin 29.8 Mean Corpuscular Hemoglobin Concent 32.7 Red Cell Distribution Width 12.8 Platelet Count 248 Mean Platelet Volume 9.7 Neutrophils % 66.6 Lymphocytes % 20.1 Monocytes % 8.8 Eosinophils % 3.5 Basophils % 0.6 Nucleated Red Blood Cells % 0.0 Neutrophils # 5.6 Lymphocytes # 1.7 Monocytes # 0.7 Eosinophils # 0.3 Basophils # 0.1 Nucleated Red Blood Cells # 0.0 Test 06/20/17 04:55 06/20/17 08:14 06/20/17 12:23 Sodium Level 143 Potassium Level 4.1 Chloride Level 103 Carbon Dioxide Level 34 H Anion Gap 10 Blood Urea Nitrogen 17 Creatinine 0.89 Glucose Level 120 Calcium Level 9.1 Phosphorus Level 5.6 #H Magnesium Level 1.8 Albumin 3.1 L Bedside Glucose 125 97 Medications Medications Current Medications Ondansetron HCl (Zofran Inj) 4 mg Q6H PRN IV NAUSEA AND/OR VOMITING; Start at 06:00 Acetaminophen (Tylenol Supp) 650 mg Q4H PRN [place] PAIN LEVEL 1-3 OR FEVER; Start 06/16/17 at 06:00 Morphine Sulfate (morphine) 2 mg Q4H PRN IV PAIN LEVEL 7-10; Start 06/16/17 at 06:00 Lorazepam (Ativan) 1 mg Q2H PRN IV ANXIETY; Start 06/16/17 at 06:00 Aspirin (Halfprin) 81 mg DAILY PO Last administered on 06/20/17 08:25; Admin Dose 81 MG; Start 06/16/17 at 09:00 Diagnostic Test (Pha) (Accu-Chek) 1 ea 02 XX Last administered on 06/18/17 02 :33; Admin Dose 1 EA; Start 06/17/17 at 02:00 Miscellaneous Information 1 ea NOTE XX ; Start 06/16/17 at 10:00 Glucose (Glutose) 15 gm Q15M PRN PO DECREASED GLUCOSE; Start 06/16/17 at 10:00 Glucose (Glutose) 22.5 gm Q15M PRN PO DECREASED GLUCOSE; Start 06/16/17 at 10: 00 Dextrose (D50w Syringe) 25 ml Q15M PRN IV DECREASED GLUCOSE; Start 06/16/17 at 10:00 Dextrose (D50w Syringe) 50 ml Q15M PRN IV DECREASED GLUCOSE; Start 06/16/17 at 10:00 Glucagon (Glucagen) 1 mg Q15M PRN IM DECREASED GLUCOSE; Start 06/16/17 at 10: 00 Glucose 15 gm 15 gm Q15M PRN BUCCAL DECREASED GLUCOSE; Start 06/16/17 at 10:00 Levetiracetam (Keppra 1,000mg/ 100ml (Pmx)) 100 ml @ 400 mls/hr Q12 IVPB Last administered on 06/20/17 10:15; Admin Dose 400 MLS/HR; Start 06/16/17 at 21:00 Lorazepam (Ativan) 2 mg Q10MIN PRN IV seizure; Start 06/16/17 at 11:30 Metoprolol Tartrate (Lopressor) 25 mg Q12 NGT Last administered on 06/20/17 08 :26; Admin Dose 25 MG; Start 06/16/17 at 21:00 Enoxaparin Sodium 40 mg 40 mg DAILY SC Last administered on 06/20/17 08:34; Admin Dose 40 MG; Start 06/17/17 at 09:30 Cefepime HCl (Maxipime 1gm/50 ml (Pmx)) 50 ml @ 100 mls/hr Q12 IVPB Last administered on 06/20/17 08:25; Admin Dose 100 MLS/HR; Start 06/17/17 at 12:00 Pantoprazole 40 mg 40 mg DAILY@06 PO Last administered on 06/20/17 05:20; Admin Dose 40 MG; Start 06/18/17 at 06:00 Sodium Chloride (NS) 1,000 ml @ 100 mls/hr Q10H IV Last administered on 09:57; Admin Dose 100 MLS/HR; Start 06/18/17 at 12:08 HAJA FUCHS MD Jun 20, 2017 17:21
[2017-06-20 20:27] VITALS: BP 147/77; RESP 20
[2017-06-21] MEDS: SOD CHLORIDE 0.9% 1,000 ML IV SCH ×2 (00:08→10:08)
[2017-06-21 02:00] VITALS: BP 148/78; RESP 18
[2017-06-21] MEDS: ACCU-CHEK XX SCH (02:00)
[2017-06-21] MEDS: PANTOPRAZOLE (EC) 40 MG TAB PO SCH (06:18)
[2017-06-21 07:52] VITALS: BP 143/87; RESP 18
[2017-06-21] MEDS: CEFEPIME 1GM/50 ML (PMX) 50 ML IVPB SCH (08:20)
[2017-06-21] MEDS: ASPIRIN (EC) 81 MG TAB PO SCH (08:20)
[2017-06-21] MEDS: METOPROLOL 25 MG TAB NGT SCH (08:21)
[2017-06-21] MEDS: ENOXAPARIN 40 MG/0.4 ML SYG SC SCH (08:26)
[2017-06-21] MEDS: INSULIN ASPART [NOVOLOG] 3 ML PEN SC SCH (09:02)
[2017-06-21] MEDS: LEVETIRACETAM 1000 MG (PMX) 100 ML IVPB SCH (09:03)
--- NOTE | 2017-06-21 11:54 | PN ---
Date/Time of Note Date/Time of Note DATE: 06/21/17 TIME: 11:53 Assessment/Plan VTE Prophylaxis VTE Prophylaxis Intervention: SCD's Lines/Catheters IV C[facility] Type [facility]from [facility] Saline Lock Urinary Cath still in place: No Assessment/Plan Assessment/Plan 1. Acute encephalopathy, drug-induced, questionable spice vs seizure- improving 2.? aspiration PNA 3. Atrial fibrillation with RVR, unknown if first event - Cardiology on board and recommendations appreciated. back in sinus rhythm and currently on BB - rate controlled - ECHO showed grade 1 diastolic dysfunction with EF 55% 4. SHANE 2/2 Prerenal azotemia 5. Diabetes Mellitus 6. Rhabdo on IVF 7. Disposition - plan for d/c home today Subjective 24 Hr Interval Summary Free Text/Dictation s/p PT, doing well, BP stable, afebrile Exam/Review of Systems Vital Signs Vitals Vital Signs Date Time Temp Pulse Resp B/P Pulse Ox O2 Delivery O2 Flow Rate FiO2 06/21/17 07:52 97.6 77 18 143/87 95 06/21/17 06:04 3.0 06/19/17 08:00 Nasal Cannula 06/17/17 10:30 60 Intake and Output 06/20/17 06/20/17 06/21/17 15:00 23:00 07:00 Intake Total 150 ml 1750 ml 1000 ml Output Total 2000 ml 1900 ml Balance 150 ml -250 ml -900 ml Exam Constitutional: alert Psych: no complaints ENMT: nl external ears & nose Neck: non-tender, supple Respiratory: clear to auscultation, normal air movement Cardiovascular: nl pulses, regular rate and rhythm Gastrointestinal: non-tender, soft Musculoskeletal: nl extremities to inspection Neurological: RETAIL SELLING SPECIALIST II-XII intact, nl mental status, nl speech, nl strength Results Result Diagram: 06/21/17 0453 06/21/17 045 Results 24 hrs Laboratory Tests Test 06/20/17 12:23 06/20/17 17:50 06/20/17 20:28 06/21/17 04:53 Bedside Glucose 97 134 130 White Blood Count 8.6 Red Blood Count 4.61 L Hemoglobin 13.7 L Hematocrit 41.3 L Mean Corpuscular Volume 89.6 Mean Corpuscular Hemoglobin 29.7 Mean Corpuscular Hemoglobin Concent 33.2 Red Cell Distribution Width 12.4 Platelet Count 256 Mean Platelet Volume 9.8 Neutrophils % 65.3 Lymphocytes % 18.6 Monocytes % 10.6 Eosinophils % 4.1 Basophils % 0.7 Nucleated Red Blood Cells % 0.0 Neutrophils # 5.6 Lymphocytes # 1.6 Monocytes # 0.9 Eosinophils # 0.4 Basophils # 0.1 Nucleated Red Blood Cells # 0.0 Sodium Level 142 Potassium Level 4.3 Chloride Level 102 Carbon Dioxide Level 31 Anion Gap 13 Blood Urea Nitrogen 14 Creatinine 0.77 Glucose Level 103 Calcium Level 8.7 Phosphorus Level 3.7 Magnesium Level 1.8 Albumin 3.6 Test 06/21/17 08:30 Bedside Glucose 155 Medications Medications Current Medications Ondansetron HCl (Zofran Inj) 4 mg Q6H PRN IV NAUSEA AND/OR VOMITING; Start at 06:00 Acetaminophen (Tylenol Supp) 650 mg Q4H PRN FL PAIN LEVEL 1-3 OR FEVER; Start 06/16/17 at 06:00 Morphine Sulfate (morphine) 2 mg Q4H PRN IV PAIN LEVEL 7-10; Start 06/16/17 at 06:00 Lorazepam (Ativan) 1 mg Q2H PRN IV ANXIETY; Start 06/16/17 at 06:00 Aspirin (Halfprin) 81 mg DAILY PO Last administered on 06/21/17 08:20; Admin Dose 81 MG; Start 06/16/17 at 09:00 Diagnostic Test (Pha) (Accu-Chek) 1 ea 02 XX Last administered on 06/18/17 02 :33; Admin Dose 1 EA; Start 06/17/17 at 02:00 Miscellaneous Information 1 ea NOTE XX ; Start 06/16/17 at 10:00 Glucose (Glutose) 15 gm Q15M PRN PO DECREASED GLUCOSE; Start 06/16/17 at 10:00 Glucose (Glutose) 22.5 gm Q15M PRN PO DECREASED GLUCOSE; Start 06/16/17 at 10: 00 Dextrose (D50w Syringe) 25 ml Q15M PRN IV DECREASED GLUCOSE; Start 06/16/17 at 10:00 Dextrose (D50w Syringe) 50 ml Q15M PRN IV DECREASED GLUCOSE; Start 06/16/17 at 10:00 Glucagon (Glucagen) 1 mg Q15M PRN IM DECREASED GLUCOSE; Start 06/16/17 at 10: 00 Glucose 15 gm 15 gm Q15M PRN BUCCAL DECREASED GLUCOSE; Start 06/16/17 at 10:00 Levetiracetam (Keppra 1,000mg/ 100ml (Pmx)) 100 ml @ 400 mls/hr Q12 IVPB Last administered on 06/21/17 09:03; Admin Dose 400 MLS/HR; Start 06/16/17 at 21:00 Lorazepam (Ativan) 2 mg Q10MIN PRN IV seizure; Start 06/16/17 at 11:30 Metoprolol Tartrate (Lopressor) 25 mg Q12 NGT Last administered on 06/21/17 08 :21; Admin Dose 25 MG; Start 06/16/17 at 21:00 Enoxaparin Sodium 40 mg 40 mg DAILY SC Last administered on 06/21/17 08:26; Admin Dose 40 MG; Start 06/17/17 at 09:30 Cefepime HCl (Maxipime 1gm/50 ml (Pmx)) 50 ml @ 100 mls/hr Q12 IVPB Last administered on 06/21/17 08:20; Admin Dose 100 MLS/HR; Start 06/17/17 at 12:00 Pantoprazole 40 mg 40 mg DAILY@06 PO Last administered on 06/21/17 06:18; Admin Dose 40 MG; Start 06/18/17 at 06:00 Sodium Chloride (NS) 1,000 ml @ 100 mls/hr Q10H IV Last administered on 09:57; Admin Dose 100 MLS/HR; Start 06/18/17 at 12:08 HAJA FUCHS MD Jun 21, 2017 11:54
--- NOTE | 2017-06-21 11:55 | PDOCDIS ---
Discharge Instructions DIAGNOSIS Discharge Diagnosis 1. Syncope, orthostatic, modify life style 2. Hypertension, controlled 3. DM with HbA1c 6.9, diet control, follow up with PCP 4. s/p atrial fibrillation, sinus now, on aspirin 5. Mild rhabdomyolysis, fall related, stable 6. Acute kidney injury, vasomotor, resolved CONDITION Patient Condition: Good HOME CARE INSTRUCTIONS: Diet Instructions: RegularSpecial Diet: LOW FAT LOW CHOL ACTIVITY: Activity Restrictions: Slowly Increase Activity Rest between Activity Avoid heavy lifting Bathing Restrictions: Shower FOLLOW UP/APPOINTMENTS Follow-up Plan follow up wiht his own PCP in one week after discharge HAJA FUCHS MD Jun 21, 2017 11:55
--- NOTE | 2017-06-21 14:13 | DS ---
Date/Time of Note Date/Time of Note DATE: 06/21/17 TIME: 14:13 Discharge Summary Admission/Discharge Info Admit Date/Time Jun 16, 2017 at 03:13 Discharge Date/Time Jun 21, 2017 at 12:45 Discharge Diagnosis 1. Syncope, orthostatic, modify life style 2. Hypertension, controlled 3. DM with HbA1c 6.9, diet control, follow up with PCP 4. s/p atrial fibrillation, sinus now, on aspirin 5. Mild rhabdomyolysis, fall related, stable 6. Acute kidney injury, vasomotor, resolved Hospital Course Assessment: Paroxysmal atrial fibrillation with rapid ventricular response - now back in sinus rhythm Acute encephalopathy - unclear etiology, ? drug-induced vs seizures, mental status now improved Acute hypoxic respiratory failure - improved and extubated Leukocytosis and lactic acidosis - ruled out for infection, resolved Recommendations -continue metoprolol 25mg BID -echocardiogram showed normal LVEF 55-60% Home Meds Active Scripts Aspirin* (Aspirin* EC) 81 Mg Tablet.dr, 81 MG PO DAILY for 30 Days Prov:TATO FIELDS MD 06/19/17 Metoprolol Tartrate* (Lopressor*) 25 Mg Tab, 25 MG NGT Q12 for 30 Days, TAB Prov:TATO FIELDS MD 06/19/17 Follow-up Plan follow up wiht his own PCP in one week after discharge Primary Care Provider Care Physician No Primary Pending Labs Laboratory Tests Test 06/20/17 17:50 06/20/17 20:28 06/21/17 04:53 06/21/17 08:30 Bedside Glucose 134mg/dL (70-220) 130mg/dL (70-220) 155mg/dL (70-220) White Blood Count 8.610^3/ul (4.8-10.8) Red Blood Count 4.6110^6/ul (4.70-6.10) Hemoglobin 13.7g/dl (14.0-18.0) Hematocrit 41.3% (42.0-52.0) Mean Corpuscular Volume 89.6fl (82.0-101.0) Mean Corpuscular Hemoglobin 29.7pg (29.0-33.0) Mean Corpuscular Hemoglobin Concent 33.2g/dl (32.0-37.0) Red Cell Distribution Width 12.4% (11.5-14.5) Platelet Count 87592^3/UL (140-415) Mean Platelet Volume 9.8fl (7.4-10.4) Neutrophils % 65.3% (39.0-77.0) Lymphocytes % 18.6% (15.0-51.0) Monocytes % 10.6% (0.0-11.0) Eosinophils % 4.1% (0.0-7.0) Basophils % 0.7% (0.0-2.0) Nucleated Red Blood Cells % 0.0/100WBC (0.0-0.0) Neutrophils # 5.610^3/ul (1.6-7.5) Lymphocytes # 1.610^3/ul (0.8-2.9) Monocytes # 0.910^3/ul (0.3-0.9) Eosinophils # 0.410^3/ul (0.0-0.5) Basophils # 0.110^3/ul (0.0-0.1) Nucleated Red Blood Cells # 0.010^3/ul (0.0-0.0) Sodium Level 142mmol/L (135-144) Potassium Level 4.3mmol/L (3.5-5.1) Chloride Level 102mmol/L (97-110) Carbon Dioxide Level 31mmol/L (21-31) Anion Gap 13 (8-16) Blood Urea Nitrogen 14mg/dl (7-20) Creatinine 0.77mg/dl (0.61-1.24) Glucose Level 103mg/dl (70-220) Calcium Level 8.7mg/dl (8.4-10.2) Phosphorus Level 3.7mg/dl (2.5-4.9) Magnesium Level 1.8mg/dl (1.7-2.5) Albumin 3.6g/dl (3.3-4.9) HAJA FUCHS MD Jun 21, 2017 14:13
[2017-06-22] MEDS ORDERED: METO25TA4 PO (15:55)
== END 2017-06-21 12:45 | disposition home or self-care (01) | DRG 917 ==
LOC: E/R 20:48 → ICU 06-16 03:13 → MS1 06-18 14:12
PROVIDERS: ADMIT Internal Medicine; ATTEND Internal Medicine
PROC: 0BH17EZ Insertion of Endotracheal Airway into Trachea, Via Natural or Artificial Opening (ICD-10-PCS; principal; 2017-06-15)
PROC: 5A1935Z Respiratory Ventilation, Less than 24 Consecutive Hours (ICD-10-PCS; 2017-06-15)
PROC: 4A00X4Z Measurement of Central Nervous Electrical Activity, External Approach (ICD-10-PCS; 2017-06-17)
DX: T43.624A Poisoning by amphetamines, undetermined, initial encounter (principal); G92 Toxic encephalopathy; J96.01 Acute respiratory failure with hypoxia; N17.9 Acute kidney failure, unspecified; J18.9 Pneumonia, unspecified organism; E87.2 Acidosis; I48.0 Paroxysmal atrial fibrillation; Z68.41 Body mass index [BMI] 40.0-44.9, adult; M62.82 Rhabdomyolysis; I95.1 Orthostatic hypotension; D72.829 Elevated white blood cell count, unspecified; E66.9 Obesity, unspecified; F17.210 Nicotine dependence, cigarettes, uncomplicated; R82.99 Other abnormal findings in urine; E11.9 Type 2 diabetes mellitus without complications; I10 Essential (primary) hypertension; E86.0 Dehydration; Z79.4 Long term (current) use of insulin
CPT/HCPCS: 31500; 36415; 36600; 70450; 71010; 74176; 80048; 80053; 80061; 80069; 80307; 81001; 82140; 82550; 82553; 82803; 82962; 83036; 83605; 83735; 84443; 84484; 85025; 85610; 85730; 87081; 93005; 93306; 93880; 94002; 94003; 94770; 95819; 96361; 96374; 96375; 96376; 97162; C9113; J0282; J0692; J1200; J1630; J1644; J1650; J1815; J1953; J2060; J3010; J3360; J7030; J7042; J7060

== ENCOUNTER 2017-06-22 15:05 | Inpatient (IN) | payer MEDICAID ==
[~2017-06-22] VITALS: Ht 182.9 cm; Wt 143.8 kg
[~2017-06-22 15:05] MED LIST: ASPI-664 PO; METO-448 NGT
[2017-06-22] MEDS ORDERED: SOD CHLORIDE 0.9% 1,000 ML IV STA (15:37)
[2017-06-22] MEDS ORDERED: NALOXONE 2 MG SYG IV STA (15:37)
[2017-06-22] MEDS ORDERED: FLUMAZENIL 0.5 MG INJ IV STA (15:37)
[2017-06-22] MEDS ORDERED: METO25TA4 PO (15:55)
[2017-06-22] MEDS ORDERED: LEVETIRACETAM 1500 MG (PMX) 100 ML IVPB ONE (16:00)
--- NOTE | 2017-06-22 16:01 | RADRPT ---
PROCEDURE: XR Chest. CLINICAL INDICATION: Syncope. TECHNIQUE: Single AP portable chest. COMPARISON: 06/18/2017 Chest x-ray FINDINGS: The cardiac silhouette is enlarged but stable in size. Moderate vascular congestion. Atheroscleroti c calcification of the aorta. No focal consolidation or pleural effusion. No pneumothorax. The osseo us structures and soft tissues are unremarkable. IMPRESSION: 1. Stable appearance of cardiomegaly and moderate vascular congestion. Superimposed infectious proce ss cannot be excluded. 2. No pleural effusion or focal consolidation . RPTAT: HRAA .Benji Almaguer MD, MD Date Time Electronically viewed and signed by .Benji Almaguer MD, on 06/22/2017 16:01 .A/
[2017-06-22] MEDS ORDERED: SOD CHLORIDE 0.9% 100 ML ONE (17:39)
[2017-06-22] MEDS ORDERED: IOHEXOL 300MG/ML 150 ML BTL ONE (17:39)
--- NOTE | 2017-06-22 18:18 | RADRPT ---
PROCEDURE: CT Brain without contrast. CLINICAL INDICATION: Syncope. TECHNIQUE: A CT of the brain was performed on a [employer] 64-slice CT scanner utilizing axial imaging from the skull base through the vertex without IV contrast. Multiplanar reformatted images were made. Images were reviewed on a PACS workstation. The CTDIvol is 45.01 mGy and the DLP is 810 .25 mGycm. One or more of the following dose reduction techniques were utilized: 1.) Automated exposure control 2.) Adjustment of the mA +/- kV according to patient's size 3.) Use of iterative reconstruction technique. COMPARISON: CT BRAIN 06/15/2017 FINDINGS: There is no intracranial hemorrhage, mass effect, or midline shift. No extra-axial fluid collection is seen. The ventricles and sulci are normal in size and configuration. The density of the brain is normal, and the lagos white matter differentiation appears well-preserved. The visualized paranasal sinuses and osseous structures are grossly unremarkable. IMPRESSION: 1. No evidence of acute intracranial pathology. 2. The brain is normal in appearance. RPTAT: HRSR Physician Divina Date Time Electronically viewed and signed by Physician Divina on 06/22/2017 18:18 RR/
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
--- NOTE | 2017-06-22 19:46 | RADRPT ---
PROCEDURE: CT Abdomen and Pelvis with contrast. CLINICAL INDICATION: Abdominal pain. TECHNIQUE: CT scan of the abdomen and pelvis with contrast was performed on a multi-detector high- resolution CT scanner. The patient was scanned following the uncomplicated intravenous administrati on of 100 cc of Omnipaque 300. Coronal and sagittal reformatted images were obtained from the axial source images. One or more of the following dose reduction techniques were used: Automated exposur e control, adjustment of the mA and/or kV according to patient size, use of iterative reconstructio n technique. Images were reviewed on a high-resolution PACS workstation. The total exam CTDI equals 23.73 mGy and the total exam DLP equals 1456.5 mGy-cm. COMPARISON: CT from 06/16/2017. FINDINGS: Subsegmental atelectasis is seen at both lung bases. No pneumothorax is evident. The liver is normal in size and in attenuation. There is no focal lesion. The gallbladder wall is n ot thickened. No radiopaque stones are identified. The intra and extrahepatic bile ducts are normal in caliber. The pancreas appears normal with no mass or inflammation evident. The spleen is normal in size with no focal lesion. The adrenal glands are normal with no mass identified. The kidneys are normal in size and there is no mass, pathological calcification, or hydronephrosis evident. There is no perinephric stranding. T he ureters are normal in caliber and no ureteroliths are identified. The reproductive organs are un remarkable. The stomach is unremarkable. Scattered diverticuli are seen within the colon particularly in the sig moid region and there is persistent moderate bowel wall thickening at the sigmoid colon along with s urrounding fat stranding. There is a new small focus of air adjacent to the inflamed colon posterior ly (image 166, series 3). It is unclear if this focus of air is within a diverticulum versus extralu devora air related to contained micro perforation. The appendix is not inflammed. No free intraperitoneal fluid or air is identified. The aorta is normal in caliber with no aneurysmal dilatation. There is mild atherosclerotic vascular calcification. No pathologically enlarged nodes are identified. There are old appearing fractures involving the left posterior eighth through tenth ribs. Moderate a nterior spurring is seen within the inferior thoracic spine. Multiple metallic densities are seen to lie within the soft tissues lateral to the right ilium and there is soft tissue scarring. IMPRESSION: 1. Peristent moderate sigmoid diverticulitis, not significantly changed in severity. A new small f ocus of air adjacent to the inflamed sigmoid colon posteriorly may represent air within a diverticul um versus extraluminal air related to contained micro perforation. No associated abscess is seen. 2. Mild atherosclerotic vascular calcification 3. Old fractures involving the left posterior eighth through tenth ribs. 4. Multiple metallic densities are seen within the soft tissues lateral to the right ilium along wi th soft tissue scarring. RPTAT: HRAA .Benji Almaguer MD, MD Date Time Electronically viewed and signed by .Benji Almaguer MD, MD on 06/22/2017 19:45 .A/
[2017-06-22] MEDS ORDERED: SOD CHLORIDE 0.9% 1,000 ML IV SCH (19:57)
[2017-06-22] MEDS ORDERED: ERTAPENEM SODIUM 1 GM in SOD CHLORIDE 0.9% 100 ML IVPB ONE (20:00)
[2017-06-22] MEDS ORDERED: ACETAMINOPHEN 325 MG TAB PO PRN ×2 (20:00→21:30)
[2017-06-22] MEDS ORDERED: ONDANSETRON 4 MG INJ IV PRN (20:00)
[2017-06-22 21:00] VITALS: Ht 182.9 cm; Wt 143.8 kg
[2017-06-22 21:02] VITALS: PULSE 80
[2017-06-22 21:14] VITALS: BP 165/98; RESP 20
[2017-06-22] MEDS ORDERED: LORAZEPAM 2 MG INJ IV PRN (21:30)
[2017-06-22] MEDS ORDERED: NACL 0.9% 3 ML SYG IV SCH (21:30)
[2017-06-22] MEDS ORDERED: morphine 2 MG INJ IV PRN (21:30)
[2017-06-22] MEDS: SOD CHLORIDE 0.9% 1,000 ML IV SCH (22:49)
[2017-06-23] VITALS (12 sets, daily range): BP systolic 144–171; BP diastolic 65–104; PULSE 65–82; RESP 16–20
[2017-06-23] MEDS ORDERED: PANTOPRAZOLE 40 MG INJ IV SCH (06:00)
[2017-06-23] MEDS: SOD CHLORIDE 0.9% 1,000 ML IV SCH ×2 (07:02→14:29)
[2017-06-23] MEDS: LEVETIRACETAM 1500 MG (PMX) 100 ML IVPB SCH ×2 (08:38→21:27)
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
[2017-06-23] MEDS ORDERED: DEXTROSE 50% 50 ML SYRINGE IV PRN ×2 (11:30)
[2017-06-23] MEDS ORDERED: GLUCAGON 1 MG INJ IM PRN (11:30)
[2017-06-23] MEDS ORDERED: GLUCOSE GEL 15 GRAM TUBE BUCCAL PRN (11:30)
[2017-06-23] MEDS ORDERED: GLUCOSE GEL 15 GRAM TUBE PO PRN ×2 (11:30)
[2017-06-23] MEDS: INSULIN ASPART [NOVOLOG] 3 ML PEN SC SCH ×3 (12:29→21:38)
--- NOTE | 2017-06-23 16:11 | RADRPT ---
PROCEDURE: US carotid arteries. CLINICAL INDICATION: Dizziness. TECHNIQUE: Multiple sonographic images of the carotid arteries and vertebral arteries were obtaine d utilizing lagos scale, duplex, and color-flow imaging. The images were reviewed on a PACS workstati on. COMPARISON: No prior studies are available for comparison. FINDINGS: Evaluation of the right carotid bifurcation region reveals mild atherosclerotic disease. Evaluation of the left carotid bifurcation region reveals mild atherosclerotic disease. There is antegrade flow within the vertebral arteries bilaterally. RIGHT CAROTID MEASUREMENTS: Common Carotid [id number] (cm/sec) Internal Carotid Artery 52 (cm/sec) External Carotid Artery 19 (cm/sec) Vertebral Artery 55 (cm/sec) Internal Carotid/Common Carotid0.8 LEFT CAROTID MEASUREMENTS: Common Carotid [id number] (cm/sec) Internal Carotid Artery 69 (cm/sec) External Carotid Artery 68 (cm/sec) Vertebral Artery 45 (cm/sec) Internal Carotid/Common Carotid0.8 Validated velocity measurements with angiographic measurements. Velocity criteria are extrapolated f rom diameter data as defined by the Society of Radiologists in Ultrasound Consensus Conference. Radi ology 2003; 229;340-346. This study does indirectly reference the measurement of the distal ICA elizabeth meter as the denominator for stenosis measurement. IMPRESSION: 1. Less than 50% stenosis bilaterally in the internal carotid arteries. 2. Normal antegrade flow in the vertebral arteries bilaterally. RPTAT: QQ SRU Consensus Conference Criteria for the Diagnosis of Carotid Artery Stenosis* Degree of Stenosis, % ICA PSV, cm/sec Plaque Estimate, % ICA/CCA PSV Ratio Normal <125 None <2.0 <50 <125 <50 <2.0 50 69 125-230 >50 2.0-4.0 >70 but less than near occlusion >230 >50 <4.0 Near occlusion High, low, or undetectable Visible Variable Total occlusion Undetectable Visible, no detectable lumen Not applicable *Cartoid artery stenosis: lagos-scale and Doppler US diagnosis. Society of Radiologists in Ultrasound Consensus Conference. Radiology 2003; 229: 340-346 .Jimi Cabrera MD, Date Time Electronically viewed and signed by .Jimi Cabrera MD, on 06/23/2017 16:11 .R/
[2017-06-23] MEDS: METOPROLOL 25 MG TAB PO SCH (21:28)
[2017-06-23] MEDS: ERTAPENEM SODIUM 1 GM in SOD CHLORIDE 0.9% 100 ML IVPB SCH (21:39)
[2017-06-24] VITALS (11 sets, daily range): BP systolic 121–151; BP diastolic 86–100; PULSE 47–67; RESP 16–18
[2017-06-24] MEDS: SOD CHLORIDE 0.9% 1,000 ML IV SCH ×5 (01:55→21:00)
[2017-06-24] MEDS: INSULIN ASPART [NOVOLOG] 3 ML PEN SC SCH ×6 (02:00→21:00)
[2017-06-24] MEDS: ACCU-CHEK XX SCH (02:00)
[2017-06-24] MEDS: PANTOPRAZOLE (EC) 40 MG TAB PO SCH (05:49)
[2017-06-24] MEDS: ASPIRIN (EC) 81 MG TAB PO SCH (08:39)
[2017-06-24] MEDS: METOPROLOL 25 MG TAB PO SCH ×2 (08:40→21:00)
[2017-06-24] MEDS: LEVETIRACETAM 1500 MG (PMX) 100 ML IVPB SCH ×2 (08:41→21:00)
[2017-06-24] MEDS ORDERED: INFLUENZA VIRUS VACCINE 0.5 ML (DISPENSING) IM* ONE (09:00)
--- NOTE | 2017-06-24 13:41 | PN ---
Date/Time of Note Date/Time of Note DATE: 06/24/17 TIME: 13:37 Assessment/Plan VTE Prophylaxis VTE Prophylaxis Intervention: SCD's Lines/Catheters IV Catheter Type (from Nrs): Saline Lock Assessment/Plan Assessment/Plan 1. Loss of consciousness, likely orthostatic syncope, cannot rule out seizure, on keppra 2. Acute sigmoid diverticulitis, on antibiotics 3. DM with HbA1c 6.9, diet control, follow up with PCP 4. s/p atrial fibrillation, sinus now, on aspirin 5. Mild rhabdomyolysis, fall related, stable 6. Acute kidney injury, vasomotor, resolved 7. Hypertension, controlled Subjective 24 Hr Interval Summary Free Text/Dictation no abdominal pain, no fever or chills. tolerates diet. no dizziness Exam/Review of Systems Vital Signs Vitals Vital Signs Date Time Temp Pulse Resp B/P Pulse Ox O2 Delivery O2 Flow Rate FiO2 06/24/17 12:15 60 06/24/17 11:50 98.0 18 121/88 96 06/22/17 20:00 Nasal Cannula 4.0 Intake and Output 06/23/17 06/23/17 06/24/17 15:00 23:00 07:00 Intake Total 100 ml 1600 ml 800 ml Output Total 750 ml 2100 ml Balance -650 ml 1600 ml -1300 ml Exam Constitutional: alert, oriented, well developed Psych: nl mood/affect, no complaints Head: atraumatic, normocephalic Eyes: EOMI, nl conjunctiva, nl lids ENMT: nl external ears & nose, nl lips & teeth, nl nasal mucosa & septum Neck: non-tender, supple Respiratory: clear to auscultation, normal air movement, No congested cough, No crackles/rales, No diminished breath sounds, No intercostal retraction, No labored breathing, No other, No respirations, No tactile fremitus, No wheezing Cardiovascular: nl pulses, regular rate and rhythm, No S3, No S4, No bruits, No diastolic murmur, No edema, No gallop, No irregular rhythm, No jugular venous distention (JVD), No murmurs/extra sounds, No other, No rub, No systolic murmur Gastrointestinal: nl liver, spleen, non-tender, soft, No ascites, No bowel sounds, No distended, No firm, No hepatomegaly, No mass , No other, No rebound or guarding, No splenomegaly, No surgical scars, No tender Musculoskeletal: nl extremities to inspection Extremities: normal pulses, No calf tenderness, No clubbing, No cyanosis, No edema, No other, No palpable cord, No pitting pedal edema, No tenderness Neurological: [employer] II-XII intact, nl mental status, nl speech, nl strength Skin: nl turgor Lymph: nl lymph nodes Results Result Diagram: 06/24/17 0642 06/24/17 0642 Results 24 hrs Laboratory Tests Test 06/23/17 16:20 06/23/17 16:49 06/23/17 21:32 06/24/17 02:11 Urine Opiates Screen Negative Urine Barbiturates Negative Urine Amphetamines Screen Negative Urine Benzodiazepines Screen Negative Urine Cocaine Screen Negative Urine Cannabinoids Negative Bedside Glucose 130 196 131 Test 06/24/17 05:49 06/24/17 06:42 06/24/17 08:38 06/24/17 12:22 Bedside Glucose 111 117 101 White Blood Count 9.0 Red Blood Count 4.65 L Hemoglobin 13.6 L Hematocrit 41.8 L Mean Corpuscular Volume 89.9 Mean Corpuscular Hemoglobin 29.2 Mean Corpuscular Hemoglobin Concent 32.5 Red Cell Distribution Width 13.1 Platelet Count 294 Mean Platelet Volume 9.7 Neutrophils % 56.4 Lymphocytes % 28.2 Monocytes % 10.2 Eosinophils % 4.0 Basophils % 0.8 Nucleated Red Blood Cells % 0.0 Neutrophils # 5.1 Lymphocytes # 2.6 Monocytes # 0.9 Eosinophils # 0.4 Basophils # 0.1 Nucleated Red Blood Cells # 0.0 Sodium Level 141 Potassium Level 4.1 Chloride Level 105 Carbon Dioxide Level 29 Anion Gap 11 Blood Urea Nitrogen 13 Creatinine 0.74 Glucose Level 109 Calcium Level 8.9 Total Bilirubin 0.1 L Direct Bilirubin 0.00 Indirect Bilirubin 0.1 Aspartate Amino Transf (AST/SGOT) 53 H Alanine Aminotransferase (ALT/SGPT) 68 Alkaline Phosphatase 63 Total Protein 7.0 Albumin 3.6 Globulin 3.40 H Albumin/Globulin Ratio 1.05 Thyroid Stimulating Hormone (TSH) 3.140 Medications Medications Current Medications Levetiracetam 100 ml @ 400 mls/hr Q12 IVPB Last administered on 06/24/17t 08: 41; Admin Dose 400 MLS/HR; Start 06/23/17 at 09:00 Ertapenem 1 gm/ Sodium Chloride 100 ml @ 200 mls/hr Q24H IVPB Last administered on 06/23/17 21:39; Admin Dose 200 MLS/HR; Start 06/23/17 at 22:00 Sodium Chloride (NS) 1,000 ml @ 175 mls/hr Q5H43M IV Last administered on 06/24 05:47; Admin Dose 175 MLS/HR; Start 06/22/17 at 21:02 Lorazepam (Ativan) 1 mg Q2H PRN IV SEIZURES; Start 06/22/17 at 21:30 Acetaminophen (Tylenol Tab) 650 mg Q6H PRN PO PAIN LEVEL 1-3 OR FEVER; Start 06/22/17 at 21:30 Morphine Sulfate (morphine) 2 mg Q4H PRN IV PAIN LEVEL 7-10; Start 06/22/17 at 21:30 Aspirin (Halfprin) 81 mg DAILY PO Last administered on 06/24/17 08:39; Admin Dose 81 MG; Start 06/24/17 at 09:00 Metoprolol Tartrate (Lopressor) 25 mg BID PO Last administered on 06/24/17 08: 40; Admin Dose 25 MG; Start 06/23/17 at 21:00 Diagnostic Test (Pha) (Accu-Chek) 1 ea 02 XX ; Start 06/24/17 at 02:00 Insulin Aspart (Novolog Insulin Pen) NOVOLOG *MILD* ALGORI... Q4 SC Last administered on 06/23/17 21:38; Admin Dose 2 UNIT; Start 06/23/17 at 13:00 Miscellaneous Information 1 ea NOTE XX ; Start 06/23/17 at 11:30 Glucose (Glutose) 15 gm Q15M PRN PO DECREASED GLUCOSE; Start 06/23/17 at 11:30 Glucose (Glutose) 22.5 gm Q15M PRN PO DECREASED GLUCOSE; Start 06/23/17 at 11: 30 Dextrose (D50w Syringe) 25 ml Q15M PRN IV DECREASED GLUCOSE; Start 06/23/17 at 11:30 Dextrose (D50w Syringe) 50 ml Q15M PRN IV DECREASED GLUCOSE; Start 06/23/17 at 11:30 Glucagon (Glucagen) 1 mg Q15M PRN IM DECREASED GLUCOSE; Start 06/23/17 at 11:30 Glucose (Glutose) 15 gm Q15M PRN BUCCAL DECREASED GLUCOSE; Start 06/23/17 at 11 :30 Pantoprazole (Protonix Tab) 40 mg DAILY@06 PO Last administered on 06/24/17t 05 :49; Admin Dose 40 MG; Start 06/24/17 at 06:00 TATO FIELDS MD Jun 24, 2017 13:40
[2017-06-24] MEDS: ERTAPENEM SODIUM 1 GM in SOD CHLORIDE 0.9% 100 ML IVPB SCH (21:30)
[2017-06-25] VITALS (8 sets, daily range): BP systolic 131–137; BP diastolic 77–87; PULSE 70–77; RESP 18
[2017-06-25] MEDS: SOD CHLORIDE 0.9% 1,000 ML IV SCH ×3 (00:52→11:54)
[2017-06-25] MEDS: INSULIN ASPART [NOVOLOG] 3 ML PEN SC SCH ×4 (01:00→11:57)
[2017-06-25] MEDS: ACCU-CHEK XX SCH (02:00)
[2017-06-25] MEDS: PANTOPRAZOLE (EC) 40 MG TAB PO SCH (05:32)
[2017-06-25] MEDS: METOPROLOL 25 MG TAB PO SCH (08:22)
[2017-06-25] MEDS: LEVETIRACETAM 1500 MG (PMX) 100 ML IVPB SCH (08:22)
[2017-06-25] MEDS: ASPIRIN (EC) 81 MG TAB PO SCH (08:22)
[2017-06-25] MEDS ORDERED: LEVE-5 PO (13:32)
[2017-06-25] MEDS ORDERED: LEVO500T72 PO (13:32)
[2017-06-25] MEDS ORDERED: METR500T PO (13:34)
[2017-06-25] MEDS ORDERED: LEVO500T10 PO (13:34)
--- NOTE | 2017-06-25 13:46 | DS ---
Date/Time of Note Date/Time of Note DATE: 06/25/17 TIME: 13:38 Discharge Summary Admission/Discharge Info Admit Date/Time Jun 22, 2017 at 19:58 Discharge Date/Time Discharge Diagnosis 1. Loss of consciousness, more likely orthostatic syncope, cannot rule out seizure, on keppra, follow up with neurology 2. Acute sigmoid diverticulitis, on flagyl and levaquin, GI for elective colonoscopy in 4 weeks 3. DM with HbA1c 6.9, diet control, follow up with PCP 4. s/p atrial fibrillation, sinus now, on aspirin 5. Mild rhabdomyolysis, fall related, stable 6. Acute kidney injury, vasomotor, resolved 7. Hypertension, controlled Patient Condition: Stable Hx of Present Illness Hospital Course This a 46-year-old male who was discharged from here last week for syncope. The patient was found in his bathroom prior to arrival by a bystander laying on the floor asleep with urinary incontinence. The patient was arousable but very difficult to keep awake. The patient states he has no recollection of how he fell. He says he recalls having the urge to get up to go to the restroom that the last thing he remembers. Patient denies any drug use denies any alcohol use denies any prescription medications or other prescription medicines. Patient started complaining of pain of the left lower quadrant approximately 30 minutes after being seen by the ED physician.. Patient denies any headache neck pain extremity pain no chest pain shortness of breath no back pain. Long talk with the patient about what happened that day, he states it was an event same as those in the past. He went to had bowel movement. After bowel movement, he stood up then lost consciousness. He had full work up regarding this during the last admission. Again, I strongly feel the event was orthostatic hypotension related based on his description. He is put on keppra for possible seizure, even the EEG and CT head are unremarkable. I will keep him on keppra and have him follow up with neurology outpatient to decide wheter to continue keppra. Patient had CT scan of abdomien and pelvis revealed sigmoid diverticulitis, even patient is asymptomatic. I will keep him on two weeks antibiotics with levaquin and flagyl. He will need elective colonoscopy in 4 weeks or so. Patient is aware of this. Home Meds Active Scripts Metronidazole* (Flagyl*) 500 Mg Tablet, 500 MG PO Q8 for 14 Days, TAB Prov:TATO FIELDS MD 06/25/17 Levofloxacin* (Levofloxacin*) 500 Mg Tablet, 500 MG PO DAILY for 14 Days, TAB Prov:TATO FIELDS MD 06/25/17 Levetiracetam* (Keppra*) 500 Mg Tablet, 500 MG PO BID for 60 Days, TAB Prov:TATO FIELDS MD 06/25/17 Aspirin* (Aspirin* EC) 81 Mg Tablet.dr, 81 MG PO DAILY for 30 Days Prov:TATO FIELDS MD 06/19/17 Reported Medications Metoprolol Tartrate* (Lopressor*) 25 Mg Tablet, 25 MG PO BID, #60 TAB 06/22/17 Discontinued Scripts Metoprolol Tartrate* (Lopressor*) 25 Mg Tab, 25 MG NGT Q12 for 30 Days, TAB Prov:TATO FIELDS MD 06/19/17 Follow-up Plan PCP in one week neurology in two week GI in 4 weeks Primary Care Provider Care Physician No Primary Pending Labs Laboratory Tests Test 06/24/17 17:04 06/24/17 21:22 06/25/17 02:16 06/25/17 05:31 Bedside Glucose 94mg/dL (70-220) 146mg/dL (70-220) 107mg/dL (70-220) 106mg/dL (70-220) Test 06/25/17 08:12 06/25/17 11:56 Bedside Glucose 263mg/dL (70-220) 90mg/dL (70-220) TATO FIELDS MD Jun 25, 2017 13:46
--- NOTE | 2017-06-27 21:13 | RADRPT ---
Echocardiogram Report Patient Name: SILVER HOLLOWAY Gender: Male Date: 1970 Study Date: 25-Jun-2017 Rn Utilization Management Um: Roro Miller [facility] Location: 5552 Ref. Physician: CHRISTI DILL Quality: Good Procedures: Transthoracic echocardiogram examination. Indications: Syncope. Findings Left Ventricle: Normal left ventricular cavity size. Normal left ventricular systolic function. The left ventricular ejection fraction is visually estimated at 55 %. Atrial Septum: Agitated saline was injected intravenously for microbubble contrast study. Agitated saline was injected intravenously for microbubble contrast study. No right to left shunt was identified with and with out valsalva maneuver. Conclusions 1.Agitated saline was injected intravenously for microbubble contrast study. Agitated saline was injected intravenously for microbubble contrast study. No right to left shunt was identified with and with out valsalva maneuver. 2.Normal left ventricular cavity size. Normal left ventricular systolic function. The left ventricular ejection fraction is visually estimated at 55 %. Electronically Signed By: Trey Giordano 27-Jun-2017 21:12:36 -0800 Patient Name: SILVER HOLLOWAY Study Date: 25-Jun-2017 [id number]
--- NOTE | 2017-06-27 21:13 | RADRPT ---
Echocardiogram Report Patient Name: SILVER HOLLOWAY Gender: Male Date: 1970 Study Date: 25-Jun-2017 Supervisor Boat Outfitting: Roro Miller [facility] Location: 5552 Ref. Physician: CHRISTI DILL Quality: Good Procedures: Transthoracic echocardiogram examination. Indications: Syncope. Findings Left Ventricle: Normal left ventricular cavity size. Normal left ventricular systolic function. The left ventricular ejection fraction is visually estimated at 55 %. Atrial Septum: Agitated saline was injected intravenously for microbubble contrast study. Agitated saline was injected intravenously for microbubble contrast study. No right to left shunt was identified with and with out valsalva maneuver. Conclusions 1.Agitated saline was injected intravenously for microbubble contrast study. Agitated saline was injected intravenously for microbubble contrast study. No right to left shunt was identified with and with out valsalva maneuver. 2.Normal left ventricular cavity size. Normal left ventricular systolic function. The left ventricular ejection fraction is visually estimated at 55 %. Electronically Signed By: Trey Giordano 27-Jun-2017 21:12:36 -0800 Patient Name: SILVER HOLLOWAY Study Date: 25-Jun-2017 [id number]
--- NOTE | 2017-06-27 21:13 | RADRPT ---
Echocardiogram Report Patient Name: SILVER HOLLOWAY Gender: Male Date: 1970 Study Date: 25-Jun-2017 Tearoom Host: Roro Miller [facility] Location: 5552 Ref. Physician: CHRISTI DILL Quality: Good Procedures: Transthoracic echocardiogram examination. Indications: Syncope. Findings Left Ventricle: Normal left ventricular cavity size. Normal left ventricular systolic function. The left ventricular ejection fraction is visually estimated at 55 %. Atrial Septum: Agitated saline was injected intravenously for microbubble contrast study. Agitated saline was injected intravenously for microbubble contrast study. No right to left shunt was identified with and with out valsalva maneuver. Conclusions 1.Agitated saline was injected intravenously for microbubble contrast study. Agitated saline was injected intravenously for microbubble contrast study. No right to left shunt was identified with and with out valsalva maneuver. 2.Normal left ventricular cavity size. Normal left ventricular systolic function. The left ventricular ejection fraction is visually estimated at 55 %. Electronically Signed By: Trey Giordano 27-Jun-2017 21:12:36 -0800 Patient Name: SILVER HOLLOWAY Study Date: 25-Jun-2017 [id number]
== END 2017-06-25 15:17 | disposition home or self-care (01) | DRG 100 ==
LOC: E/R 15:05 → MS4 19:58
PROVIDERS: ADMIT Family Medicine; ATTEND Family Medicine
DX: R56.9 Unspecified convulsions (principal); G93.40 Encephalopathy, unspecified; N17.9 Acute kidney failure, unspecified; M62.82 Rhabdomyolysis; Z68.41 Body mass index [BMI] 40.0-44.9, adult; K57.32 Diverticulitis of large intestine without perforation or abscess without bleeding; E66.01 Morbid (severe) obesity due to excess calories; I95.1 Orthostatic hypotension; I10 Essential (primary) hypertension; E11.9 Type 2 diabetes mellitus without complications
CPT/HCPCS: 36415; 70450; 71010; 74177; 80048; 80053; 80307; 82550; 82553; 82962; 83735; 83880; 84443; 84484; 85025; 85610; 85730; 90686; 93005; 93308; 93880; 96374; 96375; C9113; J1335; J1815; J1953; J2310; J7030; Q9967